=== PATIENT | female | born 1950 | race Caucasian/White ===

== ENCOUNTER 2019-12-06 | Inpatient (IN) | payer MEDICARE ==
[2019-12-05] VITALS (8 sets, daily range): BP systolic 127–140; BP diastolic 56–80
--- NOTE | 2019-12-05 05:26 | NUR ---
IV ANTIEMETIC AND IV PAION MED GIVEN PER MD ORDER.
[2019-12-05 05:32] LABS: IMMATURE GRANULOCYTES 0.4 % (0.0-5.0); MEAN CORPUSCULAR HGB 27.9 pG CALC (26.0-32.0); MEAN CORPUSCULAR HGB CONC 31.3 g/L CALC (32.0-36.0); NEUT# 10.71 thou/uL (2.00-7.15); RED BLOOD COUNT 5.45 mill/uL (4.20-5.60); RED CELL DISTRI WIDTH 13.2 % (11.5-15.5); URINE BILIRUBIN - DIPSTICK NEGATIVE (NEGATIVE); URINE BLOOD DIPSTICK NEGATIVE (NEGATIVE); URINE COLOR YELLOW; URINE GLUCOSE - DIPSTICK >=1000 mg/dL (NEGATIVE); URINE KETONE NEGATIVE (NEGATIVE); URINE LEUK ESTERASE NEGATIVE (NEGATIVE); URINE PH 5.5 (4.5-8.0); URINE PROTEIN - DIPSTICK NEGATIVE (NEG-TRACE); URINE SPECIFIC GRAVITY 1.015; URINE UROBILINOGEN - DIPSTICK 0.2 E.U./dL (0.2)
[2019-12-05 05:33] LABS: HEMATOCRIT 48.5 % (37.0-47.0); HEMOGLOBIN 15.2 g/dl (12.0-16.0)
[2019-12-05 05:34] LABS: URINE NITRITE - DIPSTICK POSITIVE (Negative)
[2019-12-05 05:35] LABS: URINE BACTERIA MANY hpf; URINE EPITHELIAL CELLS MODERATE EPI/hpf (0-FEW)
--- NOTE | 2019-12-05 05:43 | NUR ---
PT. STATES HER ABD. PAIN IS NOW DECREASED TO A 2 ON A SCALE OF 1-10.
[2019-12-05 05:50] LABS: ALBUMIN 4.9 g/dL (3.2-5.0); ALKALINE PHOSPHATASE 89 u/l (38-126); AMYLASE 57 u/l (30-110); BUN 22 mg/dL (8-23); BUN/CREATININE RATIO 30 (12-20 (CALC)); CHLORIDE 100 mmol/l (95-108); CREATININE 0.7 mg/dL (0.5-1.0); GFR > 60 ML/MIN (>=60 (CALC)); GFR FOR AFR.AMER. > 60 ML/MIN (>=60 (CALC)); LIPASE 48 u/l (23-300); POTASSIUM 4.5 mmol/l (3.5-5.1); SGOT/AST 31 u/l (9-36); SODIUM 137 mmol/l (137-146); TOTAL PROTEIN 8.1 g/dL (6.3-8.2)
[2019-12-05 05:51] LABS: ANION GAP 19 (6-22 (CALC)); BILIRUBIN, TOTAL 0.6 mg/dL (0.0-1.4); CARBON DIOXIDE 23 mmol/l (22-30)
--- NOTE | 2019-12-05 06:29 | NUR ---
IV ABT. AND IVF STARTED PER MD ORDERS.
--- NOTE | 2019-12-05 07:01 | NUR ---
REPORT TO NONA VIZCARRA.
--- NOTE | 2019-12-05 07:10 | NUR ---
PT C/O ADOMINAL PAIN THOUGH STATES IT IS BETTER THAN PREVIOUSLY STATED. PLAN OF CARE UPDATED WITH PT INCLUDING PENDING SURGERY.
--- NOTE | 2019-12-05 08:20 | NUR ---
DR. RODRIGUEZ SPOKEN WITH ABOUT PATIENT'S NG TUBE ORDER. PT SYMPTOM FREE AT THIS TIME. PER DR. ELIZALDE THE NG TUBE MAY BE HELD AT THIS TIME BUT PLACED IF SYMPTOMS PERSIST. PATIENT AWARE OF THIS PLAN OF CARE
--- NOTE | 2019-12-05 08:33 | NUR ---
Admission Note Report Given to: Transported by: Wheelchair X Stretcher Transported with: X Nurse Transporter X Patent IV O2 Welfare Investigator Location: ICU X MS2
--- NOTE | 2019-12-05 10:30 | NUR ---
PT HAD COME FROM ER VIA WHEELCHAIR . HAD MEDICATED PT WITH MORPHINE FOR PAIN IN ABD. IVF INFUSING WELL. PT NPO. NG TUBE PLACE AND PT TOLERATED WELL. CLEAR/BROWN FLUID COMING FROM NG TUBE. FAMILY IN ROOM. SAFETY PRECAUTIONS REINFORCED AND CALL LIGHT IN REACH.
--- NOTE | 2019-12-05 11:21 | NUR ---
PT WENT TO OR VIA BED BY
--- NOTE | 2019-12-05 16:30 | NUR ---
PT CAME FROM OR VIA BED. ASSESSMENT DONE. PT STATED SOME PAIN IN ABD BUT REFUSED PAIN MEDICATION AT THIS TIME. X2 DRESSING IN ABD CDI. JENI IN PLACE. SCD IN PLACE.IVF INFUSING WELL. O2 AT 3L VIA NC. PT DENIES NEEDS AT THIS TIME. CALL LIGHT IN REACH. FAMILY IN ROOM.
--- NOTE | 2019-12-05 20:50 | NUR ---
PT. A/O X3. ABLE TO EXPRESS NEEDS. NO ACUTE DISTRESS NOTED. C/O ABDOMINAL PAIN. PAIN LEVEL 05/07. MEDICATED PT. PER md ORDER. WILL CONTINUE TO MONITOR PAIN LEVEL FOR EFFECTIVENESS. PT. AWAKE IN BED WITH CALL LIGHT WITHIN REACH
[2019-12-06] VITALS: BP 130/78
[~2019-12-06] MED LIST: AMOXICILLIN875 MG PO; BL ASPIRIN325 MG PO; FLONASE NASAL50 MCG; HYDROCHLOROT12.5 MG PO; KENALOG-4040 MG/ML IM; LEVOTHYROXIN50 MCG PO; LIPITOR10 MG PO; LIPITOR20 MG PO; LIPITOR40 M1 PO; LIPITOR40 MG PO; LISINOPRIL10 MG PO; LISINOPRIL5 MG PO; MELOXICAM15 MG PO; METFORMIN500 M2 PO; OMEPRAZOLE DR40 MG PO; PREDNISONE10 MG PO; TRIAMCINOLON0.11 EX; TRIAMCINOLON0.5 % EX; [UNRECOGNIZED DRUG - CODE] PO
--- NOTE | 2019-12-06 00:30 | NUR ---
PT. RESING IN BED WITH EYES CLOSED. NO ACUTE DISTRESS NOTED. CALL LIGHT WITHIN REACH BED IN LOWEST POSITION.
[2019-12-06 03:22] VITALS: BP 126/59
--- NOTE | 2019-12-06 04:25 | NUR ---
PT. RESTING IN BED. A.M. MEDICATIONS GIVEN PER MD ORDER. TOLERATED WELL. IV SITE FLUSHED/PATENT. CALL LIGHT WITHIN REACH.
[2019-12-06 07:28] LABS: ANION GAP 12 (6-22 (CALC)); BILIRUBIN, TOTAL 0.5 mg/dL (0.0-1.4); BUN 19 mg/dL (8-23); BUN/CREATININE RATIO 24 (12-20 (CALC)); CARBON DIOXIDE 22 mmol/l (22-30); CHLORIDE 112 mmol/l (95-108); CREATININE 0.8 mg/dL (0.5-1.0); GFR > 60 ML/MIN (>=60 (CALC)); GFR FOR AFR.AMER. > 60 ML/MIN (>=60 (CALC)); POTASSIUM 4.2 mmol/l (3.5-5.1); SGOT/AST 24 u/l (9-36); SODIUM 141 mmol/l (137-146)
[2019-12-06 07:29] LABS: ALBUMIN 2.9 g/dL (3.2-5.0); ALKALINE PHOSPHATASE 44 u/l (38-126); TOTAL PROTEIN 5.4 g/dL (6.3-8.2)
[2019-12-06 07:33] LABS: IMMATURE GRANULOCYTES 0.9 % (0.0-5.0); MEAN CELL VOLUME 91.7 fL CALC (80.0-100.0); MEAN CORPUSCULAR HGB 27.9 pG CALC (26.0-32.0); MEAN CORPUSCULAR HGB CONC 30.4 g/L CALC (32.0-36.0); RED BLOOD COUNT 4.59 mill/uL (4.20-5.60); RED CELL DISTRI WIDTH 14.1 % (11.5-15.5)
[2019-12-06 07:56] LABS: HEMATOCRIT 42.1 % (37.0-47.0); HEMOGLOBIN 12.8 g/dl (12.0-16.0); MANUAL DIFFERENTIAL YES; PLATELET COUNT 208 thou/uL (130-400)
[2019-12-06 07:57] LABS: BAND 34 % (0-8)
--- NOTE | 2019-12-06 11:03 | NUR ---
PT IN BED WITH VISTOR AT BEDSIDE. A/O X 3. DRESSING IN CLEAN DRY AND INTACT. ON CONTINUOUS OXYGEN THERAPY AT 3L NASAL CANULA. INDWELLING STEARNS IS PATENT. CONTINOUS IV THERAPY NO PAIN NOTED AT SIGHT OF IV. MEDICATED WITH PRN PAIN MEDICATION FOR INCISIONAL PAIN. IN BED WITH BED IN LOWEST POSITION. CALL COHN WITH IN REACH. NO S/S OF DISTRESS.
[2019-12-06 11:24] VITALS: BP 98/60
--- NOTE | 2019-12-06 14:18 | NUR ---
Pt in bed watching tv. alert and oriented x 3 able to make needs known. No c/o pain. no sob noted. no s/s distress. Continues on ABT therpy with no s/s of adverse reactions noted. call odonnell with in reach. bed in lowest position.
[2019-12-06 15:16] VITALS: BP 122/56
--- NOTE | 2019-12-06 18:49 | NUR ---
ATTEMPTED TO START A NEW IV. UNSUCCESSFUL. ONCOMING NURSE NOTIFIED.
[2019-12-06 20:45] VITALS: BP 98/55
[2019-12-07 04:39] VITALS: BP 95/55
[2019-12-07 05:40] LABS: HEMATOCRIT 38.3 % (37.0-47.0); HEMOGLOBIN 11.2 g/dl (12.0-16.0); MEAN CELL VOLUME 93.9 fL CALC (80.0-100.0); MEAN CORPUSCULAR HGB 27.5 pG CALC (26.0-32.0); MEAN CORPUSCULAR HGB CONC 29.2 g/L CALC (32.0-36.0); RED BLOOD COUNT 4.08 mill/uL (4.20-5.60); RED CELL DISTRI WIDTH 14.1 % (11.5-15.5)
[2019-12-07 05:59] LABS: ANION GAP 10 (6-22 (CALC)); BUN 26 mg/dL (8-23); BUN/CREATININE RATIO 38 (12-20 (CALC)); CARBON DIOXIDE 20 mmol/l (22-30); CHLORIDE 113 mmol/l (95-108); CREATININE 0.7 mg/dL (0.5-1.0); GFR > 60 ML/MIN (>=60 (CALC)); GFR FOR AFR.AMER. > 60 ML/MIN (>=60 (CALC)); POTASSIUM 4.3 mmol/l (3.5-5.1); SODIUM 139 mmol/l (137-146)
[2019-12-07 08:20] VITALS: BP 108/73
--- NOTE | 2019-12-07 11:00 | NUR ---
PATIENT A/OX4, NO S/S RESP DISTRESS, PATIENT C\O ABD PAIN, TREATED PATIENT PAIN PER MD ORDERS, DR. RODRIGUEZ ORDER NG REMOVAL, PATIENT NG TUBE WAS REMOVED FROM LEFT NARE PER MD ORDERS PATIENT TOLERATED NG TUBE REMOVAL, WILL CONTINUE TO MONITOR PATIENT HOURLY ROUNDING ALL LIGHT WITHIN REACH
[2019-12-07 15:48] VITALS: BP 115/73
--- NOTE | 2019-12-07 17:50 | NUR ---
PATIENT A\OX4, NO S/S RESP DISTRESS, PATIENT ON O2 VIA NC , PATIENT C/O PAIN ' TREATED PATIENT ABD PAIN PER MD ORDERS, WILL CONTINUE TO MONITOR PATIENT HOURLY ROUNDING, CALL LIGHT WITH REACH
[2019-12-07 18:42] VITALS: BP 110/56
--- NOTE | 2019-12-07 20:00 | NUR ---
Patient is A&Ox3 and able to make needs known. Patient denied pain. patient lying in the bed with eyes open watching IV. Head to Toe assessment completed. No s/s of distress nor discomfort IV site no issues with ordered fluids running. Lungs sounds clear, postive for bowel sounds. ABD incision intact and dressing is clean and dry. Patient has a cisneros and is draining yellow urine. Patient is NPO and plan is to advance diet as tolerated. Patient had HG tube d/c and no issues noted.
[2019-12-08 03:50] VITALS: BP 130/77
--- NOTE | 2019-12-08 04:00 | NUR ---
Patient in bed resting with eyes closes, No c/o of pain. No s/s of resp distress.
[2019-12-08 05:37] LABS: HEMATOCRIT 36.6 % (37.0-47.0); HEMOGLOBIN 10.9 g/dl (12.0-16.0); MEAN CELL VOLUME 93.6 fL CALC (80.0-100.0); MEAN CORPUSCULAR HGB 27.9 pG CALC (26.0-32.0); MEAN CORPUSCULAR HGB CONC 29.8 g/L CALC (32.0-36.0); RED BLOOD COUNT 3.91 mill/uL (4.20-5.60); RED CELL DISTRI WIDTH 13.8 % (11.5-15.5)
[2019-12-08 05:48] LABS: ANION GAP 10 (6-22 (CALC)); BUN 18 mg/dL (8-23); BUN/CREATININE RATIO 30 (12-20 (CALC)); CARBON DIOXIDE 20 mmol/l (22-30); CHLORIDE 113 mmol/l (95-108); CREATININE 0.6 mg/dL (0.5-1.0); GFR > 60 ML/MIN (>=60 (CALC)); GFR FOR AFR.AMER. > 60 ML/MIN (>=60 (CALC)); POTASSIUM 4.4 mmol/l (3.5-5.1); SODIUM 140 mmol/l (137-146)
--- NOTE | 2019-12-08 07:50 | NUR ---
PT SITTING IN BED. A&O X2. O2 NC @ 2L/MIN. NO DISTRESS NOTED. PER PT SHE DOES NOT USE O2 @ HOME. EXPLAINED TO THE PT THAT I WOULD REMOVE THE O2 AND SEE HOW SHE DOES WITHOUT IT. O2 SATURATION 98% WHEN O2 REMOVED O2 SATURATION WAS 97%. NO DISTRESS NOTED AFTER REMOVAL. O2 LEFT AT BEDSIDE IF PT BECOMES SOB. IS @ BEDSIDE, PT DEMONSTRATED PROPER USE OF DEVICE. GOAL SET AT 750. ABD DRESSINGS IN PALCE, DRESSINGS CDI. NO SHADOWING PRESENT. JENI DRAIN IN PLACE WITH SEROSANGUINOS FLUID. STEARNS CATH DRAINING VIA GRAVITY WITH CLEAR YELLOW URINE NOTED. ASSESSMENT COMPLETED. DISCUSSED POC. CALL LIGHT IN REACH CONTINUE TO MONITOR.
[2019-12-08 08:50] VITALS: BP 135/85
--- NOTE | 2019-12-08 11:15 | NUR ---
PT AMBULATING HALLWAY WITH THE ASSISTANCE OF A WALKER. PT TOLERATED WELL. ASSISTED PT BACK INTO RECLINER.
[2019-12-08 11:18] VITALS: BP 144/77
--- NOTE | 2019-12-08 12:20 | NUR ---
STEARNS CATHETER REMOVED , PT TOLERATED WELL.
[2019-12-08 15:47] VITALS: BP 137/74
--- NOTE | 2019-12-08 18:08 | NUR ---
PT C/O PAIN IN ABD. IV DILAUDID GIVEN. PT TOLERATED WELL. CONTINUE TO MONITOR
[2019-12-08 18:52] VITALS: BP 118/71
--- NOTE | 2019-12-08 20:47 | NUR ---
PT RESTING IN BED. RESPIRATIONS EVEN AND UNLABORED ON RA. LUNGS SOUND CLEAR/DIMINISHED. PEDAL PULSES STRONG. DRESSING TO ABD CDI. PT DENIES ANY PAIN OR DISCOMFORT AT THIS TIME. SAFETY PRECAUTIONS IN PLACE. WILL CONTINUE TO MONITOR.
--- NOTE | 2019-12-09 00:12 | NUR ---
PT RESTING IN BED WATCHING TV. RESPIRATIONS EVEN AND UNLABORED ON RA. NO S/S OF DISTRESS AT THIS TIME. WILL CONTINUE TO MONITOR.
--- NOTE | 2019-12-09 04:00 | NUR ---
PT RESTING IN BED. NO S/S OF DISTRESS
[2019-12-09 04:10] VITALS: BP 111/65
[2019-12-09 05:37] LABS: HEMATOCRIT 37.3 % (37.0-47.0); IMMATURE GRANULOCYTES 0.4 % (0.0-5.0); MEAN CELL VOLUME 93.7 fL CALC (80.0-100.0); MEAN CORPUSCULAR HGB 27.6 pG CALC (26.0-32.0); MEAN CORPUSCULAR HGB CONC 29.5 g/L CALC (32.0-36.0); NEUT# 5.05 thou/uL (2.00-7.15); RED BLOOD COUNT 3.98 mill/uL (4.20-5.60); RED CELL DISTRI WIDTH 13.7 % (11.5-15.5)
[2019-12-09 05:46] LABS: ANION GAP 11 (6-22 (CALC)); BUN 13 mg/dL (8-23); BUN/CREATININE RATIO 26 (12-20 (CALC)); CARBON DIOXIDE 20 mmol/l (22-30); CHLORIDE 111 mmol/l (95-108); CREATININE 0.5 mg/dL (0.5-1.0); GFR > 60 ML/MIN (>=60 (CALC)); GFR FOR AFR.AMER. > 60 ML/MIN (>=60 (CALC)); MAGNESIUM 1.9 mg/dL (1.6-2.3); POTASSIUM 4.4 mmol/l (3.5-5.1); SODIUM 138 mmol/l (137-146)
[2019-12-09 07:14] VITALS: BP 137/84
--- NOTE | 2019-12-09 07:14 | NUR ---
PT SITTING IN BED. A&O X3. NO COMPLAINTS OF PAIN AT THIS TIME. IS AT BEDSIDE, PT DEMONSTRATES PROPER USE OF DEVICE. GOAL TODAY SET AT 1,000. JENI IN PLACE DRAINING SEROSANGUINEOUS FLUID. PT TOLERATING FULL LIQUID DIET WELL. STATES SHE HAS BEEN PASSING SOME GAS BUT NO BM YET. EXPLAINED TO THE PT THAT WE WOULD AMBULATE IN THE HALLWAY TODAY. PT VERBALIZED UNDERSTANDING. DISCUSSED POC. CALL LIGHT IN REACH. ASSESSMENT COMPLETED. CONTINUE TO MONITOR.
--- NOTE | 2019-12-09 08:09 | NUR ---
PT SITTING IN RECLINER. NO DISTRESS NOTED. CALL LIGHT IN REACH CONTINUE TO MONITOR.
--- NOTE | 2019-12-09 13:35 | NUR ---
DR. COLIN AT BEDSIDE. DISCUSSED POC.
[2019-12-09 14:45] VITALS: BP 144/70
--- NOTE | 2019-12-09 15:15 | NUR ---
PT SITTING IN BED WITH AT BEDSIDE. NO DISTRESS NOTED. CALL LIGHT IN REACH. CONTINUE TO MONITOR.
--- NOTE | 2019-12-09 15:39 | NUR ---
PT AMBULATING HALLWAY WITH ORACLE WMS CONSULTANT AT SIDE PT TOLERATING WELL
[2019-12-09 19:00] VITALS: BP 126/77
--- NOTE | 2019-12-09 19:12 | NUR ---
REPORT RECEIVED FROM MEKHI NAIK. PT RESTING IN BED. NO S/S OF DISTRESS AT THIS TIME. SAFETY PRECAUTIONS IN PLACE. WILL CONTINUE TO MONITOR.
--- NOTE | 2019-12-09 20:05 | NUR ---
PT RESTING IN BED ALERT AND ORIENTED. RESPIRATIONS EVEN AND UNLABORED ON RA, LUNGS SOUND CLEAR DIMINISHED. PEDAL PULSES STRONG. PT DENIES ANY PAIN OR DISCOMFORT AT THIS TIME. PT ASSISTED TO THE RESTROOM AND BACK TO BED. DRESSING CDI. SAFETY PRECAUTIONS IN PLACE. WILL CONTINUE TO MONITOR.
--- NOTE | 2019-12-10 00:24 | NUR ---
PT ASSISTED TO THE RESTROOM AND BACK TO BED. SAFETY ORECAUTIONS IN PLACE
[2019-12-10 04:15] VITALS: BP 121/82
--- NOTE | 2019-12-10 04:44 | NUR ---
PT RESTING IN BED. NO S/S OF DISTRESS AT THIS TIME. SAFETY PRECAUTIONS IN PLACE. WILL CONTINUE TO MONITOR.
[2019-12-10 04:52] LABS: HEMATOCRIT 38.1 % (37.0-47.0); HEMOGLOBIN 11.4 g/dl (12.0-16.0); MEAN CELL VOLUME 91.4 fL CALC (80.0-100.0); MEAN CORPUSCULAR HGB 27.3 pG CALC (26.0-32.0); MEAN CORPUSCULAR HGB CONC 29.9 g/L CALC (32.0-36.0); RED BLOOD COUNT 4.17 mill/uL (4.20-5.60); RED CELL DISTRI WIDTH 13.6 % (11.5-15.5)
[2019-12-10 05:03] LABS: ANION GAP 9 (6-22 (CALC)); BUN 9 mg/dL (8-23); BUN/CREATININE RATIO 19 (12-20 (CALC)); CARBON DIOXIDE 23 mmol/l (22-30); CHLORIDE 110 mmol/l (95-108); CREATININE 0.5 mg/dL (0.5-1.0); GFR > 60 ML/MIN (>=60 (CALC)); GFR FOR AFR.AMER. > 60 ML/MIN (>=60 (CALC)); MAGNESIUM 1.8 mg/dL (1.6-2.3); POTASSIUM 3.9 mmol/l (3.5-5.1); SODIUM 138 mmol/l (137-146)
--- NOTE | 2019-12-10 08:00 | NUR ---
PT RESTING IN BED. PT DENIES ANY NEEDS AT THIS TIME. DRIVER LICENSE EXAMINER WILL CONTINUE TO MONITOR
[2019-12-10] MEDS ORDERED: PERCOCET 5/325M1 TAB PO (11:36)
[2019-12-10 12:00] VITALS: BP 160/90
--- NOTE | 2019-12-10 12:00 | NUR ---
PT HAS D/C ORDER PENDING. MEDS ADMINISTERED PER ORDER. 300 CC OF INES FLUID DRAIND FROM JENI DRAIN
--- NOTE | 2019-12-10 15:00 | NUR ---
ORDER RECEIVED FROM DR PEÑA TO D/C JENI DRAIN. DIRECTOR [employer] ADVISED BY ZIGGY STEPHENSON TO MONITOR JENI INCISION SITE FOR ONE HOUR AND D/C PATIENT HOME THEREAFTER. PT NOTIFIED
--- NOTE | 2019-12-10 16:10 | NUR ---
PT DISCHARGE. DISCHARGE PAERWORK REVIEWED. PT ABLE TO VERBALIZE DAY OF F/U APPOINTMENT PER D/C ORDER. PT EDUCATED ON CARE OF INCISION SITE. PT NOTIFIED TO CALL PCP/OR RETURN TO ER IF SYMPTHOMS RETURN OR WORSENS
[2020-05-20] MEDS ORDERED: FISH OIL1000 MG PO (13:27)
[2020-05-20] MEDS ORDERED: MULTI VIT PO (13:27)
[2020-05-20] MEDS ORDERED: HAIR SKIN AND N1 TAB PO (13:27)
== END 2019-12-10 16:17 | disposition home or self-care (01) | DRG 330 ==
PROVIDERS: Internal Medicine; Nurse Practitioner Family; ADMIT Internal Medicine
PROC: 0DB80ZZ Excision of Small Intestine, Open Approach (ICD-10-PCS; principal; 2019-12-05)
PROC: 0DN80ZZ Release Small Intestine, Open Approach (ICD-10-PCS; 2019-12-05)
PROC: 0WQF0ZZ Repair Abdominal Wall, Open Approach (ICD-10-PCS; 2019-12-05)
PROC: 0WJG4ZZ Inspection of Peritoneal Cavity, Percutaneous Endoscopic Approach (ICD-10-PCS; 2019-12-05)
DX: K43.0 Incisional hernia with obstruction, without gangrene (principal); N39.0 Urinary tract infection, site not specified; K91.71 Accidental puncture and laceration of a digestive system organ or structure during a digestive system procedure; I10 Essential (primary) hypertension; E11.9 Type 2 diabetes mellitus without complications; E03.9 Hypothyroidism, unspecified; Y83.8 Other surgical procedures as the cause of abnormal reaction of the patient, or of later complication, without mention of misadventure at the time of the procedure; Z79.84 Long term (current) use of oral hypoglycemic drugs
CPT/HCPCS: G0378; J1100; S0164

== ENCOUNTER 2020-05-27 07:28 | Day surgery (SDC) | payer MEDICARE ==
[~2020-05-27] VITALS: Ht 167.6 cm; Wt 79.8 kg
[~2020-05-27 07:28] MED LIST changes: +FISH OIL1000 MG PO; +HAIR SKIN AND N1 TAB PO; +MULTI VIT PO; +PERCOCET 5/325M1 TAB PO
[2020-05-27] MEDS ORDERED: PERCOCET 5/325M1 TAB PO (12:03)
[2020-05-27 12:27] VITALS: BP 132/61
== END 2020-05-27 12:45 | disposition home or self-care (01) ==
LOC: ORM 07:28
PROVIDERS: ATTEND Surgery
PROC: 0WUF4JZ Supplement Abdominal Wall with Synthetic Substitute, Percutaneous Endoscopic Approach (ICD-10-PCS; principal; 2020-05-27)
PROC: 0DNW4ZZ Release Peritoneum, Percutaneous Endoscopic Approach (ICD-10-PCS; 2020-05-27)
DX: K43.2 Incisional hernia without obstruction or gangrene (principal); I10 Essential (primary) hypertension; E11.9 Type 2 diabetes mellitus without complications; E03.9 Hypothyroidism, unspecified; Z11.59 Encounter for screening for other viral diseases
CPT/HCPCS: C1781; J0131; J1100; J2710

== ENCOUNTER 2020-05-27 23:54 | Inpatient (IN) | payer MEDICARE ==
[~2020-05-27] VITALS: Ht 165.1 cm; Wt 86.0 kg
--- NOTE | 2020-05-27 23:57 | NUR ---
PATIENT TO ROOM 6 VIA WHEELCHAIR. UNDRESSED INTO A GOWN. ACCOMPANIED BY SPOUSE. TRIAGE COMPLETED AT BEDSIDE. AWAITING MD LEGER.
[2020-05-28] VITALS (13 sets, daily range): BP systolic 86–125; BP diastolic 46–61
--- NOTE | 2020-05-28 00:14 | NUR ---
PT STATES PAIN IS UNCONTROLLED BY PERCOCET PROVIDED POST OP TODAY, INCISION INTACT WITH DERMABOND IN PLACE, NO S/S OF INFECTION PT DENIES BM OR PASSING FLATTUS SINCE SURGERY STATES SHE HAS HAD A BOWEL BLOCKAGE AFTER SURGERY IN PAST AND THIS IS HOW IT FELT.
--- NOTE | 2020-05-28 00:25 | NUR ---
MEDICATED ORDERED FOR PAIN AND NAUSEA, IVF INFUSING ORDERED. PT AWARE OF PLANNED CT SCAN
[2020-05-28 00:43] LABS: IMMATURE GRANULOCYTES 0.2 % (0.0-5.0); MEAN CELL VOLUME 88.3 fL CALC (80.0-100.0); MEAN CORPUSCULAR HGB 27.4 pG CALC (26.0-32.0); MEAN CORPUSCULAR HGB CONC 31.1 g/dL CAL (32.0-36.0); NEUT# 9.77 thou/uL (2.00-7.15); RED BLOOD COUNT 5.65 mill/uL (4.20-5.60); RED CELL DISTRI WIDTH 14.3 % (11.5-15.5)
[2020-05-28 00:51] LABS: HEMATOCRIT 49.9 % (37.0-47.0); HEMOGLOBIN 15.5 g/dl (12.0-16.0)
--- NOTE | 2020-05-28 01:05 | NUR ---
PT RESTING SPOUSE AT BEDSIDE, PAIN IMPROVED PER PT, ICE CHIPS FOR DRY MOUTH PROVIDED, AWAITING LAB RESULTS TO PERFORM CT PT AWARE AND VERBALIZES UNDERSTANDING.
[2020-05-28 01:08] LABS: AMYLASE 148 u/l (30-110); ANION GAP 18 (6-22 (CALC)); BILIRUBIN, TOTAL 0.7 mg/dL (0.0-1.4); BUN 29 mg/dL (8-23); BUN/CREATININE RATIO 35 (12-20 (CALC)); CARBON DIOXIDE 19 mmol/l (22-30); CHLORIDE 103 mmol/l (95-108); CREATININE 0.8 mg/dL (0.5-1.0); GFR > 60 ML/MIN (>=60 (CALC)); GFR FOR AFR.AMER. > 60 ML/MIN (>=60 (CALC)); LIPASE 812 u/l (23-300); SGOT/AST 28 u/l (9-36); SODIUM 136 mmol/l (137-146)
[2020-05-28 01:11] LABS: ALBUMIN 4.5 g/dL (3.2-5.0); ALKALINE PHOSPHATASE 79 u/l (38-126)
[2020-05-28 01:19] LABS: MYOGLOBIN 93 ng/mL (0 - 62)
--- NOTE | 2020-05-28 02:05 | NUR ---
PT STATES PAIN REMAINS CONTROLLED, AWARE OF AWAITNG CT / RESULTS, CALL BELLL WITHIN REACH
--- NOTE | 2020-05-28 02:59 | NUR ---
AWARE OF PLANNED ADMISSION, CALL COHN WITHIN REACH.
--- NOTE | 2020-05-28 03:40 | NUR ---
PT TRANSFERRED TO MED SURG VIA [facility] WITH TELEMETRY ON, NURSE AT BEDSIDE ON ARRIVAL TO UNIT.
--- NOTE | 2020-05-28 03:40 | NUR ---
PT. ARRIVED TO THE FLOOR AND SETTLED IN ROOM.CALL LIGHT IS IN REACH.
--- NOTE | 2020-05-28 04:25 | NUR ---
ADMISSION ASSESSMENT COMPLETED. PT. C/O ABD PAIN AND NAUSEA AND MEDICATED WITH ORDERED DILAUDID AND ZOFRAN; WILL REASSESS. ADMISSION ASSESSMENT COMPLETED. PT. ORIENTED TO CALL LIGHT, ROOM, AND POC; VERBALIZES UNDERSTANDING. IV SITES PATENT X2. X8 SURGICAL PUNCTURES NOTED TO ABDOMEN WITH DERMABOND IN PLACE. SCD'S APPLIED TO BLE. VSS. MOUTHSWABS PROVIDED. ENCOURAGED TO CALL FOR ANY NEEDS. CALL LIGHT IS IN REACH.
--- NOTE | 2020-05-28 07:20 | NUR ---
REPORT RECEIVED FROM COLETTERN;PT RESTING IN SEMI FOWLERS POSITION;INTRODUCED SELF TO PT AND POC DISCUSSED;RESPIRATIONS EVEN AND UNLABORED ON RA;PT DENIES ANY CURRENT NEEDS;IV FLUIDS INFUSING WITH EASE;TELE MONITORING IN PLACE;PT ENCOURAGED TO CALL FOR ASSISTANCE IF NEEDED;CALL LIGHT IN REACH;WILL CONTINUE TO MONITOR
[2020-05-28 08:54] LABS: HEMATOCRIT 45.6 % (37.0-47.0); HEMOGLOBIN 13.8 g/dl (12.0-16.0); IMMATURE GRANULOCYTES 0.3 % (0.0-5.0); MEAN CELL VOLUME 88.9 fL CALC (80.0-100.0); MEAN CORPUSCULAR HGB 26.9 pG CALC (26.0-32.0); MEAN CORPUSCULAR HGB CONC 30.3 g/dL CAL (32.0-36.0); NEUT# 5.62 thou/uL (2.00-7.15); RED BLOOD COUNT 5.13 mill/uL (4.20-5.60); RED CELL DISTRI WIDTH 14.3 % (11.5-15.5)
--- NOTE | 2020-05-28 09:35 | NUR ---
PT RESTING IN SUPINE POSITION,A&O X3;VS OBTAINED AND ASSESSMENT COMPLETED, CURRENT BP 97/58 MANUALLY HR 110;PT REPORTS INCREASED ABDOMINAL PAIN RATING 10/10 ON THE PAIN SCALE AND REQUESTS PAIN MEDICATION, TO BE NOTIFIED OF LOW BLOOD PRESSURE AND REQUEST FOR PAIN MEDICATION. DILAUDID ONLY ORDERED AT THIS TIME;RESPIRATIONS EVEN AND UNLABORED ON RA,CLEAR LUNG SOUNDS;I.S. PROVIDED AND PT INSTRUCTED IN USE 10X PER HOUR;ABDOMEN DISTENDED/SOFT ON PALPATION AND HYPOACTIVE IN ALL 4 QUADRANTS;PT POST OP LAP ABDOMINAL HERNIA REPAIR 05/27/20, X8 INCISIONAL AREAS NOTED TO ABDOMEN WITH DERMABOND INTACT;STRONG PEDAL PULSES;#20G TO RAC FLUSHED AND PATENT,#22G TO RW INFUSING NS @ 125ML/HR,SITES APPEAR HEALTHY;TELE MONITORING IN PLACE;PT DENIES ANY ADDITIONAL NEEDS AT THIS TIME AND IS ENCOURAGED TO CALL FOR ASSISTANCE IF NEEDED;CALL LIGHT IN REACH;WILL CONTINUE TO MONITOR
--- NOTE | 2020-05-28 10:40 | NUR ---
PT MEDICATED WITH TORADOL 15MG IVP AND 1 FLUID BOLUS AT THIS TIME PER ORDER;PT CONTINUES TO REPORT ABDOMINAL PAIN 09/06.PT NOTIFIED OF ORDER TO OBTAIN CONSENT FOR SX AND VERBALIZES UNDERSTANDING;WILL CONTINUE TO MONITOR
--- NOTE | 2020-05-28 10:45 | NUR ---
SPOKE WITH JIM IN OR AND NOTIFIED OF CONSENT FOR SX.
--- NOTE | 2020-05-28 10:50 | NUR ---
CONSENT OBTAINED FOR EXPLORATORY LAPRAROSCOPY POSSIBLE LAPARTOMY.PT EDUCATED ON ALL RISKS AND BENFITS AND VERBALIZES UNDERSTANDING.
--- NOTE | 2020-05-28 11:39 | NUR ---
PT TRANSPORTED TO OR IN STABLE CONDITION VIA HOSPITAL BED ACCOMPANIED BY X2 OR NURSES.
[2020-05-28 13:12] LABS: BILIRUBIN, TOTAL 0.6 mg/dL (0.0-1.4)
[2020-05-28 13:13] LABS: TOTAL PROTEIN 5.5 g/dL (6.3-8.2)
--- NOTE | 2020-05-28 17:13 | NUR ---
CALLED [facility] SPOKE TO CLARA WAS GIVEN CONFIRMATION NUMBER [phone]
--- NOTE | 2020-05-28 20:02 | NUR ---
LASER SPECIALIST CALL HERE PER RADIOLOGIST TWO NEW ORDERS FOR CXR, ORDERS HAVE BEEN PLACED.
--- NOTE | 2020-05-28 20:28 | NUR ---
[id number]: PT LAYS WITH HOB ABOUT 3O DEGREES. PT IS DROWSY, AWAKENS EASILY WHEN SPOKEN TO, WHEN ASKED HOW SHE FEELS SHE STATES, "WORN OUT." PT DENIES PAIN AT THIS TIME. ICE CHIPS PROVIDED PER ORDER, PT ABLE TO PLACE INTO HER MOUTH WITH GUIDANCE. R NARE NG TUBE PLACED ON LIS, DRAINS YELLOW/BROWN BILE. ABD BIMDER INTACT, HAS TWO DRAINS ON UPPER ABDOMEN COMING ABOVE ABOVE ABD BINDER AND TWO DRAINS ON LOWER ABD COMIND DOWN FROM ABD BINDER. PT ALSO HAS A WOUND VAC AT 125 MMHG CONTINUOUS. BLOOD SUGAR CHECKED. RIJ TRIPLE LUMEN INTACT, FLUSHE AND RETURNS BLOOD PROPERLY. NS AT 150 ML/HR. STEARNS CATH INTACT, DRAINS TO GRAVITY, 125 ML DRAINED OUT, DARK INES CLOUDY URINE NOTED. DRAINED 70 ML OUT OF DRAINS, DRAINAGE IS BLOODY AND WITH SMALL CLOTS. SCD'S PLACED. SATS 90%-93% ON 2 L/MIN NC, NO SOB NOTED. NURSING ASSESSMENT PERFORMED. PT ORIENTED X4. CALL LIGHT WITHIN REACH.
--- NOTE | 2020-05-28 22:04 | NUR ---
PT'S HAD CALLED EARLIER AND PT DID NOT WISH TO SPEAK AT THE MOMENT, PT WANTS TO TALK TO HIM NOW, I HAVE CALLED AND TAKEN PT PHONE TO PT, SHE IS NOW SPEAKING TO HIM.
--- NOTE | 2020-05-28 22:57 | NUR ---
PT C/O SORE THROAT, PROVIDED WITH LOZENGE, ALSO REPORTS PAIN AT 6 ON ABDOME, DILAUDID IV PROVIDED. ABD BINDER WAS ALSO RELEASED SOME, PT COMPLAINED OF IT "CUTTING INTO MY THIGH AND TOO TOGHT I CAN'T BREATHE." PT OFFFERS NO OTHER COMPLAINTS, CALL LIGHT WITHIN REACH.
[2020-05-29] VITALS (20 sets, daily range): BP systolic 60–155; BP diastolic 33–83
--- NOTE | 2020-05-29 00:40 | NUR ---
PT WAS TRUNED TO HE RLEFT SIDE WITH MAX ASSIST X2, C/O OF PAIN, DILAUDID PROVIDED ALSO PROVIDED ANOTHER LOZENGER. NO OTHER COMPLAINTS OR NEEDS AT THIS TIME.CALL LIGHT WITHIN REACH.
--- NOTE | 2020-05-29 05:15 | NUR ---
PT IS AFEBRILE, REQUESTS ICE CHIPS, PROVIDED. OFFERS NO COMPLAINTS OR NEEDS AT THIS TME. CALL LIGHT WITHIN REACH.
[2020-05-29 05:37] LABS: HEMATOCRIT 42.2 % (37.0-47.0); HEMOGLOBIN 12.7 g/dl (12.0-16.0); MEAN CELL VOLUME 90.4 fL CALC (80.0-100.0); MEAN CORPUSCULAR HGB 27.2 pG CALC (26.0-32.0); MEAN CORPUSCULAR HGB CONC 30.1 g/dL CAL (32.0-36.0); RED BLOOD COUNT 4.67 mill/uL (4.20-5.60); RED CELL DISTRI WIDTH 15.1 % (11.5-15.5)
[2020-05-29 06:12] LABS: ALBUMIN 2.5 g/dL (3.2-5.0); ALKALINE PHOSPHATASE 36 u/l (38-126); BILIRUBIN, TOTAL 0.6 mg/dL (0.0-1.4); BUN 38 mg/dL (8-23); BUN/CREATININE RATIO 41 (12-20 (CALC)); CREATININE 0.9 mg/dL (0.5-1.0); GFR > 60 ML/MIN (>=60 (CALC)); GFR FOR AFR.AMER. > 60 ML/MIN (>=60 (CALC)); POTASSIUM 4.2 mmol/l (3.5-5.1); SODIUM 139 mmol/l (137-146); TOTAL PROTEIN 4.8 g/dL (6.3-8.2)
[2020-05-29 06:14] LABS: ANION GAP 11 (6-22 (CALC)); CARBON DIOXIDE 15 mmol/l (22-30); CHLORIDE 117 mmol/l (95-108); SGOT/AST 57 u/l (9-36)
--- NOTE | 2020-05-29 06:16 | NUR ---
pain medication and lozenger provided per pt request. pt did speak on the phone this am with her . also provided the incentive spirometer and eduacted on how and when to use it, pt agrees to use it when pain is less.
--- NOTE | 2020-05-29 08:30 | NUR ---
DR PEÑA AT BEDSIDE
--- NOTE | 2020-05-29 10:40 | NUR ---
DR RODRIGUEZ AT BEDSIDE.
--- NOTE | 2020-05-29 12:00 | NUR ---
PT RESTING IN BED, REPOSITIONED WITH ASSIST. ALERT AND ORIENTEDX4. MOVES ALL EXREMITIES. DENIES PAIN OR DISCOMFORT AT THIS TIME. CALL LIGHT WITHIN REACH, WILL CONTINUE TO MONITOR.
--- NOTE | 2020-05-29 14:40 | NUR ---
PT SOB, SATS IN THE 80'S, OXYGEN VIA NC INCREASED TO 6LT. STAT XRAY ORDERED. DR PEÑA NOTIFIED
--- NOTE | 2020-05-29 14:54 | NUR ---
RT AT BEDSIDE, NON-REBREATHER PLACED ON PT. OXYGEN SATS NOW 98%.
--- NOTE | 2020-05-29 15:20 | NUR ---
PT RESTING IN BED, 1MG DILAUDID FOR ABD PAIN.
--- NOTE | 2020-05-29 15:40 | NUR ---
PT CALLED IN TO SPEAK TO , PORTABLE TAKEN TO PT.
--- NOTE | 2020-05-29 18:40 | NUR ---
PT MOVED TO BED 4.
--- NOTE | 2020-05-29 21:00 | NUR ---
pt lays with hob 30 degrees. on high flow, weaned down. pt did attempt to pull her nrb off. wound vac intact with abd binder on. alpa drains x4 intcat. rij triple lumen inatct, meds infusing properly. scd's intact. cisneros cath intact. afebrile. st on telemetry, hr low 100's. call light within reach.
[2020-05-30] VITALS (7 sets, daily range): BP systolic 86–186; BP diastolic 42–88
--- NOTE | 2020-05-30 00:24 | NUR ---
pt reuests milk begins to pull nrb mask off, explained she can have ice chips, ice chips provided and given to her with a spoon.
--- NOTE | 2020-05-30 02:39 | NUR ---
pt in no acute distress. alpa drains emptied prn. o2 weaned to 5 l/min on nrb mask, sats 97%.
--- NOTE | 2020-05-30 04:38 | NUR ---
pt washed up, linens changed. pt moans in pain, would like pain mediactio. ice chips provided. sats 95%.
--- NOTE | 2020-05-30 05:05 | NUR ---
blood drawn from [facility] for labs ordered this am.
[2020-05-30 06:14] LABS: MAGNESIUM 1.8 mg/dL (1.6-2.3)
[2020-05-30 06:15] LABS: ANION GAP 7 (6-22 (CALC)); BUN 37 mg/dL (8-23); BUN/CREATININE RATIO 50 (12-20 (CALC)); CHLORIDE 122 mmol/l (95-108); CREATININE 0.7 mg/dL (0.5-1.0); GFR > 60 ML/MIN (>=60 (CALC)); GFR FOR AFR.AMER. > 60 ML/MIN (>=60 (CALC)); POTASSIUM 3.8 mmol/l (3.5-5.1); SODIUM 144 mmol/l (137-146)
[2020-05-30 06:18] LABS: CARBON DIOXIDE 19 mmol/l (22-30)
--- NOTE | 2020-05-30 07:00 | NUR ---
pt resting in bed, assessed. pt has shallow breathing in the 30's, crackles on the left. Afebrile, temp of 97.4 temporal and oral. pt skin is flushed. see process interventions for full assessment
--- NOTE | 2020-05-30 08:00 | NUR ---
DR PEÑA AT BEDSIDE, NO NEW ORDERS AT THIS TIME.
--- NOTE | 2020-05-30 10:00 | NUR ---
PT RESTING IN BED, DENIES PAIN OR DISCOMFORT AT THIS TIME, CALL LIGHT WITHIN REACH, WILL CONTINUE TO MONITOR.
--- NOTE | 2020-05-30 11:48 | NUR ---
PT ASSESSED, RESTING IN BED, 1MG DILAUDID FOR ABDOMINAL PAIN GIVEN. LEFT LOWER JENI DRAIN- 60ML BILE OUT. NG TUBE TO LIS DARK GREEN DRAINAGE. TPN INFUSING AT 85ML/HR. AFEBRILE, FLAT AFFECT. ST 106, WILL CONTINUE TO MONITOR.
--- NOTE | 2020-05-30 12:00 | NUR ---
DR RODRIGUEZ AT BEDSIDE. PT ASSESSED, PT WILL HAVE TO GO BACK TO OR, DR RODRIGUEZ WILL NOTIFY FAMILY OF PROCEDURE.
--- NOTE | 2020-05-30 12:20 | NUR ---
DR RODRIGUEZ CALLED TO GIVE ME NURSING VP INTEGRATION AT [facility] PHONE NUMBER FOR PT TRANSFER.
--- NOTE | 2020-05-30 12:29 | NUR ---
SPOKE TO ALVAREZ AT [facility], PT FACESHEET FAXED OVER ICU BED 240 ASSIGNED.
--- NOTE | 2020-05-30 12:40 | NUR ---
SPOKE TO DAUGHTER JAYDE, UPDATED HER ON PENDING TRANSFER.
--- NOTE | 2020-05-30 12:50 | NUR ---
[facility] CALLED FOR PT TRANSFER TO [facility].
--- NOTE | 2020-05-30 13:00 | NUR ---
REPORT CALLED TO NONA ICU AT [facility].
--- NOTE | 2020-05-30 13:30 | NUR ---
[facility] HERE FOR TRANSPORT
--- NOTE | 2020-05-30 13:50 | NUR ---
VINEET ON THE PHONE, LET PT KNOW HE CALLED TO CHECK ON HER.
--- NOTE | 2020-05-30 13:54 | NUR ---
PT TRANSFERED TO [facility]IA [facility], PT LEFT IN STABLE CONDITION. ALL BELONGINGS PACKED AND SENT WITH PATIENT. DR RODRIGUEZ MADE AWARE THAT PT ON THE WAY OVER.
--- NOTE | 2020-06-01 17:38 | NUR ---
CALLED AND GOT THE WOUND VAC FOR RETURN. SPOKE TO LAMBERTO AND WAS GIVEN CONFIRMATION NUMBER [phone].
== END 2020-05-30 13:54 | DRG 907 ==
LOC: ED 23:54 → ED-I 05-28 02:31 → ED 05-28 02:52 → MS2 05-28 02:53 → ED-I 05-28 02:53 → MS2 05-28 02:59 → ICU 05-28 18:37
PROVIDERS: Emergency Medicine; Internal Medicine; ADMIT Surgery; ATTEND Surgery
PROC: 0DB80ZZ Excision of Small Intestine, Open Approach (ICD-10-PCS; principal; 2020-05-28)
PROC: 0DQA0ZZ Repair Jejunum, Open Approach (ICD-10-PCS; 2020-05-28)
PROC: 0WQF0ZZ Repair Abdominal Wall, Open Approach (ICD-10-PCS; 2020-05-28)
PROC: 0WPF0JZ Removal of Synthetic Substitute from Abdominal Wall, Open Approach (ICD-10-PCS; 2020-05-28)
PROC: 0WJF4ZZ Inspection of Abdominal Wall, Percutaneous Endoscopic Approach (ICD-10-PCS; 2020-05-28)
PROC: 0DNW0ZZ Release Peritoneum, Open Approach (ICD-10-PCS; 2020-05-28)
PROC: 02HV33Z Insertion of Infusion Device into Superior Vena Cava, Percutaneous Approach (ICD-10-PCS; 2020-05-28)
PROC: 3E0436Z Introduction of Nutritional Substance into Central Vein, Percutaneous Approach (ICD-10-PCS; 2020-05-29)
DX: K91.71 Accidental puncture and laceration of a digestive system organ or structure during a digestive system procedure (principal); J96.01 Acute respiratory failure with hypoxia; J95.811 Postprocedural pneumothorax; K65.3 Choleperitonitis; A41.9 Sepsis, unspecified organism; R65.21 Severe sepsis with septic shock; T81.44XA Sepsis following a procedure, initial encounter; I10 Essential (primary) hypertension; E11.9 Type 2 diabetes mellitus without complications; E03.9 Hypothyroidism, unspecified; E78.5 Hyperlipidemia, unspecified; I95.9 Hypotension, unspecified; E83.51 Hypocalcemia; Y83.2 Surgical operation with anastomosis, bypass or graft as the cause of abnormal reaction of the patient, or of later complication, without mention of misadventure at the time of the procedure; Y83.8 Other surgical procedures as the cause of abnormal reaction of the patient, or of later complication, without mention of misadventure at the time of the procedure
CPT/HCPCS: C1781; J0131; J1100; J2710; Q9967; S0164

== ENCOUNTER 2020-06-12 13:18 | Inpatient (IN) | payer MEDICARE ==
[~2020-06-12] VITALS: Ht 165.1 cm; Wt 80.0 kg
--- NOTE | 2020-06-12 13:18 | NUR ---
PT ARRIVED TO UNIT VIA STRETCHER WITH MEDICAL TRANSPORT; ARRIVED WITH EMS STAFF. ASSITED TO BED WITH 3 PERSON ASSIST. ALERT AND ORIENTED. C/O 06/06 ABDOMINAL PAIN AND REQUESTS BEDPAN FOR BM AND VOID. PURWIK APPLIED AFTERWARDS. RESPIRATIONS EVEN AND UNLABORED ON 1L 02 VIA NC. DRESSING TO ABDOMEN INTACT WITH YELLOW DRAINAGE; DRESSING TO BUTTOCK CDI. DOUBLE LUMEN MIDLINE IN PLACE TO GUERO PLACED 06/03/20 AND DRESSING REPLACED 06/10/20. ORIENTED TO ROOM AND CALL LIGHT SYSTEM. PLAN OF CARE DISCUSSED. PT ENCOURAGED TO VEBALIZE CONCERNS. STATES UNDERSTANDING. SAFETY MEASURES IN PLACE. CALL LIGHT WITHIN REACH.
--- NOTE | 2020-06-12 14:00 | NUR ---
SPOKE WITH DR. RODRIGUEZ ABOUT ORDERS AND CLARIFED MEDICATIONS. PLAN FOR SURGERY TOMORROW FOR AND ABDOMINAL WASH AND WOUND VAC PLACEMENT. OR NOTIFIED.
--- NOTE | 2020-06-12 17:15 | NUR ---
DRESSING TO ABDOMEN CHANGED DUE TO LARGE AMOUNT OF DRAINAGE ONTO GOWN AND LINEN; YELLOW GREEN DRAINAGE; NO ODOR NOTED. SITE TO LEFT ABD REPACKED WITH AYAKA, ABD PAD, AND PAPER TAPE. STAGE II PRESSURE ULCER TO SACRUM; BARRIER CREAM APPLIED. SCDS ATTACHED AND HEEL PROTECTORS APPLIED. NEW LINEN PROVIDED. AT BEDSIDE. PT UPDATED ON PLANS FOR SURGERY TOMORROW.
[2020-06-12 17:42] VITALS: BP 110/68
[2020-06-12 19:17] VITALS: BP 108/65
--- NOTE | 2020-06-12 20:00 | NUR ---
ASSESSMENT COMPLETED. NO RESP. DISTRESS NOTED. O2 INFUSING PER NC @1LITER/MIN. VSS. X2 LARGE DRESSINGS NOTED TO MID AND LEFT SIDE OF ABDOMEN AND X2 SMALL AQUACEL FOAM DRESSINGS TO RIGHT SIDE OF ABD; CDI. PT. ASSSITED ONTO BEDPAN TO TO TRY AND HAVE A BM; PUREWIC IS IN PLACE PT. IS NOT CURRENTLY GETTING OOB. UPDATED ON POC; DENIES PAIN AT THIS TIME. ENCOURAGED TO CALL FOR ANY NEEDS. CALL LIGHT IS IN REACH. WILL CONTINUE TO MONITOR.
--- NOTE | 2020-06-12 20:30 | NUR ---
SPOKE WITH DR. RODRIGUEZ TO VERIFY IF HE WOULD LIKE LOVENOX GIVEN TONIGHT AND PER MD MABRY TO ADMINISTER.
--- NOTE | 2020-06-12 22:21 | NUR ---
PT. REPORTING RIGHT FLANK PAIN 07/07 AND MEDICATED WITH ORDERED PRN DILAUDID; WILL REASSESS. DRESSING TO LEFT SIDE OF ABDOMEN IS SATURATED WITH GREEN DRAINAGE FROM INCISION AND REMOVED AND CLEANED WITH NS AND NEW GAUZE AND ABD PADS APPLIED. DENIES FURTHER NEEDS. CALL LIGHT IS IN REACH.
[2020-06-13] VITALS (14 sets, daily range): BP systolic 98–128; BP diastolic 46–75
--- NOTE | 2020-06-13 00:22 | NUR ---
NO DISTRESS NOTED; JAZMINE KOO. DRESSINGS REMAIN CDI TO ABDOMEN; PT. IS NOW NPO. SCD'S REAPPLIED; ECOURAGED TO CALL FOR ANY NEEDS. CALL LIGHT IS IN REACH.
--- NOTE | 2020-06-13 02:07 | NUR ---
RESTING IN BED WITH EYES CLOSED; RESP. EVEN AND UNLABORED. CALL LIGHT IS IN REACH.
--- NOTE | 2020-06-13 04:16 | NUR ---
PT. CLEANED OF A SMALL INCONTINENCE OF URINE AND DRAW SHEET AND PAD CHANGED. DENIES NEEDS. VSS. ENCOURAGED TO CALL FOR ANY NEEDS. CALL LIGHT IS IN REACH.
--- NOTE | 2020-06-13 05:24 | NUR ---
PT. C/O BACK PAIN AND MEDICATED WITH ORDERED PRN DIALUDID; WILL REASSESS. ENCOURAGED TO CALL FOR ANY NEEDS.
--- NOTE | 2020-06-13 05:55 | NUR ---
PT. REMOVED DENTURES AND PT. DID OWN ORAL CARE WITH MOUTHWASH. PT. PROVIDED WITH WARM WASHCLOTH TO CLEAN HER FACE AND WASH HER HANDS. GOWN CHANGED. CHECKED FOR INCONTINENCE AND NONE NOTED. ENCOURAGED TO CALL FOR ANY NEEDS.
[2020-06-13 06:30] LABS: IMMATURE GRANULOCYTES 0.5 % (0.0-5.0); MEAN CELL VOLUME 90.2 fL CALC (80.0-100.0); MEAN CORPUSCULAR HGB 26.7 pG CALC (26.0-32.0); MEAN CORPUSCULAR HGB CONC 29.6 g/dL CAL (32.0-36.0); NEUT# 6.25 thou/uL (2.00-7.15); RED BLOOD COUNT 3.07 mill/uL (4.20-5.60); RED CELL DISTRI WIDTH 13.8 % (11.5-15.5)
[2020-06-13 06:32] LABS: HEMATOCRIT 27.7 % (37.0-47.0); HEMOGLOBIN 8.2 g/dl (12.0-16.0)
[2020-06-13 06:37] LABS: ALBUMIN 2.4 g/dL (3.2-5.0); BUN 13 mg/dL (8-23); BUN/CREATININE RATIO 31 (12-20 (CALC)); CREATININE 0.4 mg/dL (0.5-1.0); GFR > 60 ML/MIN (>=60 (CALC)); GFR FOR AFR.AMER. > 60 ML/MIN (>=60 (CALC)); POTASSIUM 4.2 mmol/l (3.5-5.1); SGOT/AST 20 u/l (9-36); TOTAL PROTEIN 5.5 g/dL (6.3-8.2)
[2020-06-13 06:42] LABS: ALKALINE PHOSPHATASE 93 u/l (38-126); ANION GAP 8 (6-22 (CALC)); BILIRUBIN, TOTAL 0.2 mg/dL (0.0-1.4); CARBON DIOXIDE 26 mmol/l (22-30); CHLORIDE 103 mmol/l (95-108); SODIUM 133 mmol/l (137-146)
--- NOTE | 2020-06-13 07:35 | NUR ---
ASSESSMENT IS COMPLETED: IV SITE IS FREE FROM REDNESS OR EDEMA. HR IS REG,PULSES ARE STRONG X4, ABD IS SOFT WITH ACTIVE BS. BREATH SOUNDS ARE CLEAR BILATERALLY. NO C/O SOB, DRESSING ON ABD IS CDI. SCD'S ARE IN PLACE CONTINUE TO OSBERVE AND MONITOR TELE MONITOR INPLACE.
--- NOTE | 2020-06-13 08:06 | NUR ---
PT note Patient is screened for PT intervention. We will recheck and follow in interdisciplinary team meeting as there is not enough information to make a determination at this time
--- NOTE | 2020-06-13 08:14 | NUR ---
PT TRANSPORTED TO OR VIA BED WITH STAFF AND IV SITE.
--- NOTE | 2020-06-13 10:55 | NUR ---
PT RETURNED FROM OR VIA BED WITH STAFF. WOUND VAC PUMP. IV FLUIDS CONTINUE TO OSBERVE AND MONITOR.
--- NOTE | 2020-06-13 12:30 | NUR ---
PT IS RELAXING IN BED "NOT FEELING UP TO WALKING TODAY". IV SITE IS FREE FROM REDNESS OR EDEMA. CONTINUE TO OBSERVE AND MONITOR.
--- NOTE | 2020-06-13 16:15 | NUR ---
PT IS RELAXING IN BED WITH NO DISTRESS NOTED. IV SITE IS FREE FROM REDNESS OR EDEMA.
--- NOTE | 2020-06-13 21:19 | NUR ---
PT MEDICATED AT THIS TIME. WOUND VAC @125 CONTINUOUS SUCTION. PT SLEEPING AT THIS TIME, AWOKE TO MY VOICE AND QUICKLY RETURNED BACK TO SLEEP. NO S/O DISTRESS NOTED.
--- NOTE | 2020-06-14 00:37 | NUR ---
WOUND VAC IN PLACE W/GOOD SUCTION AND SEAL @125. PT WAS SLEEPING SOUNDLY WHEN I ENTERED THE ROOM, BUT AWOKE TO MY VOICE. DENIES ANY NEEDS AT THIS TIME. PUREWICK IN PLACE AND SUCTIONING TO LOW CONTINUOUS SUCTION.
--- NOTE | 2020-06-14 05:01 | NUR ---
PT MEDICATED ORDERS PROVIDE AND V/S ASSESSED. PT ASKED TO BE PLACED ON BEDPAN, DENIED ABILITY TO GET UP TO BSC. PT LEFT ON BEDPAN, PUREWICK IS IN PLACE AND PT REMINDED OF THIS STATING SHE NEEDS TO HAVE A BM.
--- NOTE | 2020-06-14 05:20 | NUR ---
PT OFF OF BEDPAN, NO STOOL OUTPUT AT THIS TIME. PT IS NOW ASKING FOR PAIN MEDICATION/PROVIDED 6/10 ON PAIN SCALE REPORTED. WOUND VAC TO SUCTION 125 W/GOOD SEAL. 600CC OF URINE OUTPUT CLOUDY DARK YELLOW.
[2020-06-14 05:21] VITALS: BP 132/81
[2020-06-14 07:50] VITALS: BP 101/53
--- NOTE | 2020-06-14 07:50 | NUR ---
ASSESSMENT IS COMPLETED: IV SITE IS FREE FROM REDNESS OR EDEMA. HR IS REG,PULSES ARE STRONG, X4, ABD IS SOFT WITH WOUND VAC IN PLACE. PT HAS A SMALL AREA ON THE LEFT SIDE HAS SOME YELLOW DRAINIAGE. DRESSING IS INTACT. PLACED A DRY WASH CLOTH TO CATCH THE DRAINAGE, TELE MONTIO IN PLACE. CONTINUE TO OBSERVE AND MONITOR.
[2020-06-14 10:30] VITALS: BP 111/51
--- NOTE | 2020-06-14 12:30 | NUR ---
PT HAD A BM ON THE BEDPAN. IV SITE IS FREE FROM REDNESS OR EDEMA. CONTINUE TO OSBERVE AND MONITOR. HAD PT TURN FROM SIDE TO SIDE AND BECAME TIRED. PAIN MEDICATION WAS GOVEN.
[2020-06-14 15:00] VITALS: BP 108/51
--- NOTE | 2020-06-14 16:30 | NUR ---
PT IS RELAXING IN BED WITH NO DISTRESS NOTED. IV SITE IS FREE FROM REDNESS OR EDEMA. CONTINUE TO OSBERVE AND MONITOR.,
[2020-06-14 19:08] VITALS: BP 114/63
--- NOTE | 2020-06-14 20:16 | NUR ---
pt assessment completed and medicated w/pm med and for pain 6/10 on pain scale. wound vac to good seal suction @125. purwick is in place @continual low suction with dark yellow cloudy output. oxygen on @1.5Lnc. abd wound vac dressing cdi with good seal visualized. pt denies any other needs at this time. call light w/in reach at side and pt encouraged to call as needs arise.
--- NOTE | 2020-06-14 23:46 | NUR ---
PT IS IN BED WATCHING TV, DENIES ANY NEEDS AT THIS TIME.
[2020-06-15] VITALS (7 sets, daily range): BP systolic 97–130; BP diastolic 55–89
--- NOTE | 2020-06-15 04:04 | NUR ---
PT PLACED ON BEDPAN AND THEN OFF. PT ONLY URINATED. PUREWICK REPLACED TO CONTINUAL LOW SUCTION. PT WAS IN PAIN 7/10 REPORTED FOLLOWING TURNING. ABD DRESSING CDI W/GOOD SEAL TO 125 SUCTION TO WOUND VAC. PT MEDICATED FOR PAIN AT THIS TIME.
--- NOTE | 2020-06-15 05:26 | NUR ---
IV ANTBIOTIC THERAPY ADMINISTERED AT THIS TIME. NO S/O DISTRESS
--- NOTE | 2020-06-15 08:10 | NUR ---
ASSESSMENT IS COMPLETED; IV SITE IS FREE FROM REDNESS OR EDEMA. HR IS REG,PULSES ARE STRONG X4, ABD IS SOFT WITH ACTIVE BS. BREATH SOUNDS ARE CLEAR,BILATERALLY. DRESSING ON ABD WOUND VAC IN PLACE. CONTINUE TO OSBERVE AND MONITOR.
[2020-06-15 10:47] LABS: HEMATOCRIT 25.3 % (37.0-47.0); HEMOGLOBIN 7.5 g/dl (12.0-16.0); IMMATURE GRANULOCYTES 0.8 % (0.0-5.0); MEAN CELL VOLUME 89.4 fL CALC (80.0-100.0); MEAN CORPUSCULAR HGB 26.5 pG CALC (26.0-32.0); MEAN CORPUSCULAR HGB CONC 29.6 g/dL CAL (32.0-36.0); NEUT# 5.34 thou/uL (2.00-7.15); RED BLOOD COUNT 2.83 mill/uL (4.20-5.60); RED CELL DISTRI WIDTH 13.7 % (11.5-15.5)
--- NOTE | 2020-06-15 12:09 | NUR ---
C/O PAIN ON HER RIGHT RIB CAGE AND SIDE. WHEN SHE BREATHES IN AND MOVES. ENCOURAGED TO USE THE ISP.
--- NOTE | 2020-06-15 12:30 | NUR ---
PT IS RELAXING IN BED WITH NO DISTRESS NOTED. IV SITE IS FREE FROM REDNESS OR EDEMA. CONTINUE TO OBSERVE AND MONITOR.
--- NOTE | 2020-06-15 16:23 | NUR ---
CANISTER CHANGED TO DUE TO BEING FULL.
--- NOTE | 2020-06-15 16:30 | NUR ---
PT IS RELAXING IN BED WITH NO DISTRSS NOTED. IV SITE IS FREE FROM REDNESS OR EDEMA.
--- NOTE | 2020-06-15 19:35 | NUR ---
PT CALLED FOR PAIN MEDICATION. MEDICATED PT FOR PAIN AT THIS TIME. PT REPOSITIONED IN THE BED AND PUREWICK REPOSITIONED FOR PLACEMENT, DRAINING DARK YELLOW CLEAR URINE. TV IS ON AND CELLPHONE RINGING, PT ASSISTED AT REACHING FOR FOR AND WATER. DENIES ANY OTHER NEEDS, WILL FOLLOW-UP TO RECHECK PAIN LEVEL.
--- NOTE | 2020-06-15 21:29 | NUR ---
PT SLEEPING, NO S/O DISTRESS.
--- NOTE | 2020-06-16 00:05 | NUR ---
PT MEDICATED W/ANTIBIOTIC THERAPY, PT SLEEPING SOUNDLY. LIGHTS ARE OUT AND TV ARE ON.
--- NOTE | 2020-06-16 01:12 | NUR ---
CONCRETE CURER'S IN BATHING PT AND CHANGING BEDDING. PT MEDICATED FOR PAIN AND PICTURES TAKEN OF COCCYX AREA FOR CHART.
[2020-06-16 04:20] VITALS: BP 121/70
--- NOTE | 2020-06-16 05:58 | NUR ---
PT MEDICATED W/IV ANTIBIOTIC THERAPY AND AM MEDICATION. PT REPORTED PAIN LEVEL 1/10 ON PAIN SCALE, DID NOT MEDICATE AT THIS TIME. ASSISTED PT W/COVERS FOR COMFORT. WOUND VAC @125 W/BLOODY DRAINAGE @50 IN WOUND VAC CANISTER. PUREWICK IN PLACE TO LOW CONTINUOUS SUCTION.
[2020-06-16 08:15] VITALS: BP 131/62
[2020-06-16 08:44] LABS: HEMATOCRIT 27.5 % (37.0-47.0); HEMOGLOBIN 8.2 g/dl (12.0-16.0); MEAN CELL VOLUME 88.7 fL CALC (80.0-100.0); MEAN CORPUSCULAR HGB 26.5 pG CALC (26.0-32.0); MEAN CORPUSCULAR HGB CONC 29.8 g/dL CAL (32.0-36.0); RED BLOOD COUNT 3.1 mill/uL (4.20-5.60); RED CELL DISTRI WIDTH 13.9 % (11.5-15.5)
--- NOTE | 2020-06-16 10:31 | NUR ---
PT'S DAUGHTER VISITING.
--- NOTE | 2020-06-16 10:55 | NUR ---
Physical therapy in room.
--- NOTE | 2020-06-16 10:55 | NUR ---
PT Note Pt. positioned in semi-fowlers position upon entering room. Pt. had agreed to participate in therpay if she can do bed exercises. Ther exercises consisting of ankle pumps, heel slides, hip abduction all bilaterally, UE above head x 20 for improved strength. Tray table and call odonnell by pt. side as exited room. [facility] 6 score 13.
[2020-06-16 11:58] VITALS: BP 135/67
--- NOTE | 2020-06-16 12:06 | NUR ---
ASSESSMENT IS COMPLETED: IV SITE IS FREE FROM REDNESS OR EDEMA. HEART RATE IS REG,PULSES ARE STRONG, X4, ABD IS SOFT WITH WOUND VAC IN PLACE. PT HAS A SMALL AREA ON THE LEFT SIDE HAS SOME YELLOW DRAINIAGE. DRESSING IS INTACT. STAGE 2 PRESSURE WOUND NOTEED ON COCCYX. APPLIED WOUND DRESSING 4X4 FOAM WOUND DRESSING WITH PAPER TAPE. ORDERED AIR MATTRESS TO AID IN COMFORT DUE TO LACK OF MOBILITY. TELE MONTIOR IN PLACE. WILL CONTINUE TO MONITOR.
--- NOTE | 2020-06-16 12:08 | NUR ---
CALLED [facility] ORDERED AIR QUINTANILLA SPOKE WITH DARLEEN SHE GAVE CONFORMATION #[id number]
--- NOTE | 2020-06-16 13:16 | NUR ---
DR. RODRIGUEZ AT BEDSIDE; REMAINING JENI SITE WITH DRAINAGE THAT MD WANTS TO TREAT SURGICALLY TOMORROW MORNING. VERBAL ORDER TO LEAVE WOUND VAC DRESSING IN PLACE TODAY.
--- NOTE | 2020-06-16 16:05 | NUR ---
PATIENT ALERT AND ORIENTED. DENIES PAIN. IV CLEAN AND INTACT. TELE ON.PURWICK IN POSITION AND COLLECTING. CALL COHN WITHIN REACH. WILL CONTINUE TO MONITOR.
[2020-06-16 16:15] VITALS: BP 120/46
--- NOTE | 2020-06-16 17:22 | NUR ---
PT TRANSFERRED TO [facility] WITH 4 PERSON ASSIST TO SLIDE. NOW ASSISTED ONTO BEDPAN. AT BEDSIDE. WOUND VAC INTACT AND DRAINGING AT 125 MMGH. PURWIK CATHETER DRAINING CLEAR YELLOW URINE.
[2020-06-16 19:00] VITALS: BP 126/69
[2020-06-17] VITALS (11 sets, daily range): BP systolic 121–146; BP diastolic 53–84
[2020-06-17 07:22] LABS: MEAN CORPUSCULAR HGB CONC 29.6 g/dL CAL (32.0-36.0); RED BLOOD COUNT 4.07 mill/uL (4.20-5.60)
--- NOTE | 2020-06-17 08:51 | NUR ---
OR AT BEDSIDE. PT OFF UNIT VIA BED IN STABLE CONDITION.
[2020-06-17 08:53] LABS: HEMATOCRIT 35.8 % (37.0-47.0); HEMOGLOBIN 10.6 g/dl (12.0-16.0)
--- NOTE | 2020-06-17 10:41 | NUR ---
therapist made AM attempt to see patient however pt was in OR. Will attempt to see this PM
[2020-06-17 10:45] LABS: ALBUMIN 2.5 g/dL (3.2-5.0); ALKALINE PHOSPHATASE 93 u/l (38-126); ANION GAP 7 (6-22 (CALC)); BILIRUBIN, TOTAL 0.2 mg/dL (0.0-1.4); BUN 6 mg/dL (8-23); BUN/CREATININE RATIO 16 (12-20 (CALC)); CARBON DIOXIDE 29 mmol/l (22-30); CHLORIDE 103 mmol/l (95-108); CREATININE 0.4 mg/dL (0.5-1.0); GFR > 60 ML/MIN (>=60 (CALC)); GFR FOR AFR.AMER. > 60 ML/MIN (>=60 (CALC)); POTASSIUM 3.4 mmol/l (3.5-5.1); SGOT/AST 22 u/l (9-36); SODIUM 135 mmol/l (137-146); TOTAL PROTEIN 5.5 g/dL (6.3-8.2)
--- NOTE | 2020-06-17 11:00 | NUR ---
REPORT TAKEN; ASSESSMENT COMPLETE.V/S ASSESSED, PT IS ORIENTED AND ALERT X3. AWKAKEN TO STIMIMULI. TELE ON. HEALTHY FLUSHES. NO S/O DISTRESS NOTED. WILL CONTINUE TO MONITOR.
--- NOTE | 2020-06-17 12:55 | NUR ---
PATIENT WOUND VAC CHANGED OUT BY COMPANY VAC #[id number] TAKEN FOR CLEANING AND REPLACED WITH #[id number]
--- NOTE | 2020-06-17 13:00 | NUR ---
PATIENT ALERT AND ORIENTED. DENIES PAIN. IV CLEAN AND INTACT. TELE ON.PURWICK IN POSITION AND COLLECTING. CALL COHN WITHIN REACH. WILL CONTINUE TO MONITOR.
--- NOTE | 2020-06-17 14:11 | NUR ---
PT RECEIVED FROM WILFRED FROM PACU. PT IS IN STABLE CONDITION. VITALS ASSESSED, PURWICK AND SCD'S REAPPLIED TO PT. PT A&O X3; VERBALIZED PAIN AT 3-4 ON PAIN SCALE. PT STATED THAT SHE HAD NO APPETITE AT THIS TIME. PT INSTRUCTED TO CALL FOR ANY CONCERNS. CALL COHN PLACED WITHIN REACH. WILL CONTINUE TO MONITOR.
--- NOTE | 2020-06-17 14:28 | NUR ---
therapist made PM attempt however patient reported she was very tired from AM procedure and she would participate tomorrow (tuesday) because her next procedure isnt until . ampac =13
--- NOTE | 2020-06-17 16:29 | NUR ---
[facility], OR MELQU[facility]ADES, CALLED TO NOTIFY NURSE OF PLANNED PROCEDURE SCHEDULED WITH DR. RODRIGUEZ ON Tuesday. PT TO HAVE SAME PROCEDURE TODAY WITH ABDOMINAL WASH OUT AND WOUND VAC PLACEMENT. PT AWARE. RESTING WITH MINIMAL PAIN; VSS. SCDS INTACT TO BLE; WOUND VAC INTACT WITH GOOD SUCTION AND NO LEAKS. TELE ON. OXYGEN ON AT 2L VIA NC.
--- NOTE | 2020-06-17 17:15 | NUR ---
ASSISTED TO BEDPAN FOR LARGE LOOSE BOWEL MOVEMENT. AT BEDSIDE.
--- NOTE | 2020-06-17 20:25 | NUR ---
PT LAYING IN BED RESTING, NO APPARENT DISTRESS, RESPIRATIONS REG & UNLABORED. PHYSICAL ASSESMENT COMPLETE. PT CURRENTLY REPORTS ABD PAIN AT 02/04, PRN PERCOCET ADMINISTERED AND SCHEDULED MEDS ADMINISTERED, SEE E-MAR. ABDOMINAL WOUNDVAC INTACT, SUCTION @ 125mmHg. PT DENIES ANY NEEDS AT THIS TIME. PLAN OF CARE REVIEWED, PT DENIES QUESTIONS, VERBALIZES UNDERSTANDING. ITEMS WITHIN REACH, BED LOCKED IN LOW POSITION W/ BEDRAILS UP X2. CALL COHN WITHIN REACH, AGREES TO CALL PRN.
[2020-06-18 00:24] VITALS: BP 120/74
--- NOTE | 2020-06-18 00:30 | NUR ---
PT APPEARS TO BE SLEEPING COMFORTABLY, NO APPARENT DISTRESS, RESPIRATIONS REGULAR AND UNLABORED. ITEMS REMAIN WITHIN REACH, BED REMAINS LOCKED IN LOW POSITION W/ BEDRAILS UP X2. CALL COHN REMAINS WITHIN REACH.
[2020-06-18 04:00] VITALS: BP 116/69
--- NOTE | 2020-06-18 06:30 | NUR ---
PHYSICAL ASSESMENT UNCHANGED FROM BEGINING OF SHIFT BASELINE ASSESMENT. AM HEMODYNAMICS WNL/ STABLE. PT AFEBRILE. PT DENIES NEEDS AT THIS TIME. ITEMS REMAIN WITHIN REACH, BED REMAINS LOCKED IN LOW POSITION W/ BEDRAILS UP X2. CALL COHN REMAINS WITHIN REACH, AGREES TO CALL PRN.
[2020-06-18 09:00] VITALS: BP 123/67
[2020-06-18 10:30] VITALS: BP 116/54
--- NOTE | 2020-06-18 11:06 | NUR ---
PT IN BED WWITH EYES OPEN AND ABLE TO MAKE NEED KNOWN. HEART RHTHYM REGULAR AND LUNG SOUNDS ARE CLEAR IN UPPER LOBES AND DIMINISHED IN LOWER LOBED. PT DENIES RESPIRATORY CONCERNS AND DENIES COUGHING. BOWEL SOUNDS HYPOACTIVE IN LEFT LOWER QUADRANT. PT HAD MODERATE AMOUNT OF WATERY DARK BROWN STOOLS THIS AM. CONTINENT OF BOWEL AND BLADDER AND ASKING FOR BEDPAN THIS AM. WOUND VAC IN PLACE TO ABDOMEN AND FUNCTIONING AT 125MM/HG. REDNESS NOTED AROUND WOUNDVAC DRESSING. MD IN TO SEE PT THIS AM AND NEW ORDERS FOR NPO AND WOUND VAC CHANGE WITH POSSIBLE DEBRIDEMENT IN AM. PT MADE AWARE OF NEW ORDERS. INCENTIVE SPIROMETRY AT BEDSIDE AND EDUCATED AND ENCOURAGED PT TO USE IT AND PT STATES SHE UNDERSTANDS. MEDICATIONS GIVEN AND TOLERATED WELL. PICC LINE IN PLACE AND FUNCTIONING WITH NO COMPLICATIONS.
--- NOTE | 2020-06-18 13:10 | NUR ---
PT note was seen for therex and therapeutic activities. Began with pt in supine performing ankle pumps 2x10, quad sets 2x10, glute sets 2x10, SAQ 2x10, heel slides 2x10, isometric hamstring with 5SH 1x10, pillow squeeze adduction 2x10, abduction with manual resistance 2x10. Then bed mobility with VC for optimal hand placement and pt transitioning to sitting upright on EOB where she performed LAQ 2x10. Pt remained sitting upright unsupported for several minutes in order to increase paraspinal musculature strength and static sitting balance. Then pt transitioned back to supine in bed with call light near.
[2020-06-18 15:00] VITALS: BP 117/52
--- NOTE | 2020-06-18 17:42 | NUR ---
PT IN BED WITH EYES OPEN AND ABLE TO VERBALIZE NEEDS. MEDICATED FOR ABDOMINAL PAIN AND EFFECTIVE. WOUND VAC RUNNIONG WITH NO COMPLICATIONS NOTED. MEAL AND FLUID INTAKE FAIR. CONTINUES TO HAVE FLUIDS RUNNING AT 20ML AND TOLERATING WELL. PICC LINE FLUSHING WITH NO COIMPLICATIONS NOTED. SAT ON SIDE OF BED YODAY WITH THERAPY ASSIST AND TOLERATED WELL. CALL LIGHT WITHIN REACH AND BED IN LOWEST POSITION. WILL CONTINUE TO OBSERVE
--- NOTE | 2020-06-18 19:45 | NUR ---
PT LAYING IN BED RESTING, NO APPARENT DISTRESS, RESPIRATIONS REG & UNLABORED. PHYSICAL ASSESMENT COMPLETE. PT CURRENTLY REPORTS ABD PAIN AT 05/07, PRN DILAUDID ADMINISTERED AND SCHEDULED MEDS ADMINISTERED, SEE E-MAR. ABDOMINAL WOUNDVAC ALARMING LEAK, REINFORCED WITH NON-OCCLUSIVE DRESSING BY Eddi TRINH LPN. LEAK SUCCESFULLY RESOLVED. SUCTION @ 125mmHg. PT DENIES ANY NEEDS AT THIS TIME. PLAN OF CARE REVIEWED, PT DENIES QUESTIONS, VERBALIZES UNDERSTANDING. ITEMS WITHIN REACH, BED LOCKED IN LOW POSITION W/ BEDRAILS UP X2. CALL COHN WITHIN REACH, AGREES TO CALL PRN.
[2020-06-18 23:50] VITALS: BP 132/76
[2020-06-19] VITALS (11 sets, daily range): BP systolic 107–146; BP diastolic 66–81
--- NOTE | 2020-06-19 | NUR ---
PT NPO FOR OR IN AM AT THIS TIME.
[2020-06-19 05:20] LABS: MEAN CELL VOLUME 90.9 fL CALC (80.0-100.0); MEAN CORPUSCULAR HGB 26.2 pG CALC (26.0-32.0); MEAN CORPUSCULAR HGB CONC 28.8 g/dL CAL (32.0-36.0); RED BLOOD COUNT 2.86 mill/uL (4.20-5.60); RED CELL DISTRI WIDTH 14.3 % (11.5-15.5)
[2020-06-19 05:34] LABS: HEMOGLOBIN 7.5 g/dl (12.0-16.0)
[2020-06-19 05:40] LABS: ALBUMIN 2.2 g/dL (3.2-5.0); ALKALINE PHOSPHATASE 82 u/l (38-126); ANION GAP 4 (6-22 (CALC)); BILIRUBIN, TOTAL 0.2 mg/dL (0.0-1.4); BUN 7 mg/dL (8-23); BUN/CREATININE RATIO 18 (12-20 (CALC)); CARBON DIOXIDE 29 mmol/l (22-30); CHLORIDE 105 mmol/l (95-108); CREATININE 0.4 mg/dL (0.5-1.0); GFR > 60 ML/MIN (>=60 (CALC)); GFR FOR AFR.AMER. > 60 ML/MIN (>=60 (CALC)); POTASSIUM 3.5 mmol/l (3.5-5.1); SGOT/AST 20 u/l (9-36); SODIUM 135 mmol/l (137-146); TOTAL PROTEIN 5.2 g/dL (6.3-8.2)
--- NOTE | 2020-06-19 08:46 | NUR ---
RECEIVED REPORT FROM JT.PT IN BED WITH EYES OPEN AND ABLE TO VERBALIZE NEEDS. ASSESSMENT COMPLETE. WOUND VAC RUNNIONG WITH NO COMPLICATIONS NOTED. RESPIRATIONS EVEV AND UNLABORED WITH NO SIGNS OF DISTRESS. DENIES PAIN AT THIS TIME. PICC LINE FLUSHING WITH NO COIMPLICATIONS NOTED. CALL LIGHT WITHIN REACH AND BED IN LOWEST POSITION. WILL CONTINUE TO MONITOR.
--- NOTE | 2020-06-19 10:24 | NUR ---
Physical therapy treatment on hold per patient request, she is getting ready for a procedure. On site PT informed of same (Ma. Diane Mcgowan).
--- NOTE | 2020-06-19 13:48 | NUR ---
FOAM PLACE ON PT BUTTOCKS. PICTURE TAKEN. PT TAKEN TO OPERTING ROOM IN STABLE CONDITION BY O.R. STAFF.
--- NOTE | 2020-06-19 16:26 | NUR ---
PT RETURNED TO ROOM VIA BED WITH OR STAFF IN STABLE CONDITION; ALERT AND ORIENTED X 3. C/O INTERMITTENT CRAMPING ABDOMINAL PAIN. RESPIRATIONS EVEN AND UNLABORED ON OXYGEN 2L VIA NC. NEW WOUND VAC DRESSING IN PLACE WITH SUCTION AT 125MMGH; NO LEAKING NOTED ALL ABDOMINAL DRESSINGS CDI. VSS. SCDS REAPPLIED. DL GUERO PICC SALINE LOCKED. UPDATED THAT PT IS BACK IN ROOM AND STABLE. SAFETY MEASURES IN PLACE. CALL LIGHT WITHIN REACH.
[2020-06-19 17:10] LABS: HEMATOCRIT 29.3 % (37.0-47.0); HEMOGLOBIN 8.5 g/dl (12.0-16.0); MEAN CELL VOLUME 89.9 fL CALC (80.0-100.0); MEAN CORPUSCULAR HGB 26.1 pG CALC (26.0-32.0); RED BLOOD COUNT 3.26 mill/uL (4.20-5.60); RED CELL DISTRI WIDTH 14.3 % (11.5-15.5)
--- NOTE | 2020-06-19 19:00 | NUR ---
REPORT RECEIVED FROM Brittany MATTHEWS RN, CARE OF PT ASSUMED @ THIS TIME.
--- NOTE | 2020-06-19 19:01 | NUR ---
POST OP VS COMPLETE AND WNL; AT BEDSIDE. PT RESTING IN BED COMFORTABLY WITH NO REQUESTS OR COMPLAINTS. TOLERATED FULL LIQUID DINNER. CALL LIGHT WITHIN REACH.
--- NOTE | 2020-06-19 20:15 | NUR ---
PT RESTING IN BED WATCHING TV. NO APPARENT DISTRESS. RESPIRATIONS REGULAR AND UNLABORED. PHYSICAL ASSESMENT COMPLETE. WOUND VAC TO ABD SEALED AND DRAINING TO 125mmHg SUCTION. DRAINAGE IS SANGUINOUS. REPORTS DULL ABD PAIN 6/10 AND REQUEST ANALGESIC. PRN DILAUDID ADMINISTERED, SCHEDULED LOVENOX ADMINISTERED. SEE E-MAR. PT DENIES FURTHER NEEDS WHEN ASKED. ACCEPT OFFER OF HS SNACK. SALTINE CRACKERS AND GINGERALE PROVIDED. PT ABLE TO TOLERATE. PLAN OF CARE REVIEWED, EDUCATION ON SPLINTING, COUGHING, DEEP BREATHING, INCENTIVE SPIROMETRY, TURNING, AND PAIN SCALE REPORTING REVIEWED. PT VERBALIZES UNDERSTANDING OF PLAN OF CARE AND PROVIDED EDUCATION. DENIES QUESTIONS. ITEMS WITHIN PTS REACH. BED LOCKED IN LOW POSITION WITH BEDRAIL UP X2. CALL COHN WITHIN REACH, AGREES TO CALL PRN.
--- NOTE | 2020-06-20 00:05 | NUR ---
PT APPEARS TO BE SLEEPING COMFORTABLY. NO APPARENT DISTRESS. RESPIRATIONS REGULAR AND UNLABORED. ITEMS REMAIN WITHIN PTS REACH. BED REMAINS LOCKED IN LOW POSITITON W/ BEDRAILS UP X2 AND BED ALRAM ON. CALL COHN REMAINS WITHIN REACH.
--- NOTE | 2020-06-20 00:05 | NUR ---
PT APPEARS TO BE SLEEPING COMFORTABLY. NO APPARENT DISTRESS. RESPIRATIONS REGULAR AND UNLABORED. ITEMS REMAIN WITHIN PTS REACH. BED REMAINS LOCKED IN LOW POSITITON W/ BEDRAILS UP X2. CALL COHN REMAINS WITHIN REACH.
[2020-06-20 03:35] VITALS: BP 117/69
--- NOTE | 2020-06-20 04:10 | NUR ---
JEWELSMITH REPORTS PT HASNT VOIDED THIS SHIFT. PT DENIES DISCOMFORT OR FEELING THE NEED TO VOID. BLADDER SCAN SHOWS 157ML. AM LABS DRAWN FROM R-PICC. PT DENIES ANY NEEDS AT THIS TIME. CALL COHN REMAINS WITHIN REACH.
[2020-06-20 04:21] LABS: HEMATOCRIT 26.2 % (37.0-47.0); HEMOGLOBIN 7.6 g/dl (12.0-16.0); MEAN CELL VOLUME 90.3 fL CALC (80.0-100.0); MEAN CORPUSCULAR HGB 26.2 pG CALC (26.0-32.0); RED BLOOD COUNT 2.9 mill/uL (4.20-5.60); RED CELL DISTRI WIDTH 14.5 % (11.5-15.5)
[2020-06-20 04:57] LABS: ALBUMIN 2.3 g/dL (3.2-5.0); ALKALINE PHOSPHATASE 84 u/l (38-126); ANION GAP 3 (6-22 (CALC)); BUN 8 mg/dL (8-23); BUN/CREATININE RATIO 18 (12-20 (CALC)); CARBON DIOXIDE 31 mmol/l (22-30); CHLORIDE 104 mmol/l (95-108); CREATININE 0.4 mg/dL (0.5-1.0); GFR > 60 ML/MIN (>=60 (CALC)); GFR FOR AFR.AMER. > 60 ML/MIN (>=60 (CALC)); POTASSIUM 3.1 mmol/l (3.5-5.1); SGOT/AST 20 u/l (9-36); SODIUM 135 mmol/l (137-146); TOTAL PROTEIN 5.1 g/dL (6.3-8.2)
[2020-06-20 04:58] LABS: BILIRUBIN, TOTAL 0.1 mg/dL (0.0-1.4)
--- NOTE | 2020-06-20 06:16 | NUR ---
PT HAS NOT VOIDED. AM LABS ASSESSED. WILL ENDORSE TO ONCOMING NURSE IN AM. HEMODYNAMICS WNL/ STABLE. PT AFEBRILE. PT DENIES NEEDS AT THIS TIME. ITEMS REMAIN WITHIN REACH, BED REMAINS LOCKED IN LOW POSITION W/ BEDRAILS UP X2. CALL COHN REMAINS WITHIN REACH, AGREES TO CALL PRN.
[2020-06-20 08:05] VITALS: BP 123/77
--- NOTE | 2020-06-20 10:07 | NUR ---
MS. SALDANA WAS SEEN RESTING IN BED WITH HOB ELEVATED. SHE COMPLAINED OF ABDOMINAL PAIN BUT AGREED TO PARTICIPATE WITH PHYS THERAPY. SHE WAS GIVEN MIN A TO PERFORM SUPINE TO SIT ON EDGE OF BED WHILE SHE HOLDS ONTO BED RAILS TO MAINTAIN SITTING BALANCE. SHE INDEPENDENTLY SCOOTED FORWARD WHILE PUSHING SELF UP ON BED. SIT TO STAND REQUIRED VERBAL CUES AND MAX A WITH RW. THEN SHE PIVOT TRANSFERRED TO SIT IN A CHAIR ON THE BEDSIDE. DESCENT CONTROL WAS POOR WITH COMPLAINT OF PAIN SHE SAT DOWN. PT REPORTED MINIMAL DIZZINESS WHICH RESOLVED QUICKLY. NO SOB NOTED DURING THE ACTIVITIES. PT REPORTS FEELING BETTER SITTING UP IN CHAIR. THEREX SUCH AROM OR B UE AND SITTING MARCHES WERE DEMONSTRATED AND ENCOURAGED PT TO PERFORM WITHIN THE DAY. PT UNDERSTOOD AND AGREED. AMPAC SCORE TODAY: 11 POINTS PT WILL BENEFIT FROM CONTINUED THERAPEUTIC DYNAMIC ACTIVITIES AND GEN. STRENGTHENING TO IMPROVE FUNCTIONAL LEVEL.
[2020-06-20 10:55] VITALS: BP 111/69
--- NOTE | 2020-06-20 14:48 | NUR ---
ALERT AND ORIENTED. ABLE TO VERBALIZE NEEDS. PT'S WOUND VAC INTACT AND RUNNING AT 125. ASSISTED OOB BY PT. PT STATES PAIN IS MANAGED BY IV DILAUDID. GOOD APETITITE. VISITOR IS AT BEDSIDE AT THIS TIME. PT RESTING COMFORTABLY AT THIS TIME.
--- NOTE | 2020-06-20 14:50 | NUR ---
PLAN IS FOR PATIENT TO BE NPO AFTER MIDNIGHT. SX TO CHANGE WOUND VAC IN THE AM. PATIENT MADE AWARE. D/C PLAN IS FOR REHAB.
[2020-06-20 15:11] VITALS: BP 119/67
[2020-06-20 18:45] VITALS: BP 135/73
--- NOTE | 2020-06-20 19:56 | NUR ---
1955-Pt assessment complete. Pt complains of pain, pt medicated. No s/s of distress. Bed low and locked. Call light and phone within reach. Pt stable. Will continue to monitor.
[2020-06-20 23:05] VITALS: BP 105/60
--- NOTE | 2020-06-20 23:56 | NUR ---
5869-Pt resting in bed. No s/s of distress. Bed low and locked, call light and phone within reach. Pt stable. Will continue to monitor.
[2020-06-21] VITALS (11 sets, daily range): BP systolic 111–140; BP diastolic 56–76
--- NOTE | 2020-06-21 04:23 | NUR ---
0423-Pt lying in bed. Pt needed labs drawn. Flushed PICC with 10 ml of saline, flushed well. I attempted to withdraw blood and could only obtain 4 ml. After 2 additional attempts I was unsuccessful. Almaz from ICU was called and her recommendation is to obtain an order for cath flow. Bed low and locked. Call light and phone within reach. Pt stable, no s/s of distress. Will continue to monitor.
[2020-06-21 05:47] LABS: ALBUMIN 2.4 g/dL (3.2-5.0); ALKALINE PHOSPHATASE 94 u/l (38-126); ANION GAP 5 (6-22 (CALC)); BUN 7 mg/dL (8-23); BUN/CREATININE RATIO 17 (12-20 (CALC)); CARBON DIOXIDE 30 mmol/l (22-30); CHLORIDE 103 mmol/l (95-108); CREATININE 0.4 mg/dL (0.5-1.0); GFR > 60 ML/MIN (>=60 (CALC)); GFR FOR AFR.AMER. > 60 ML/MIN (>=60 (CALC)); POTASSIUM 3.4 mmol/l (3.5-5.1); SGOT/AST 22 u/l (9-36); SODIUM 134 mmol/l (137-146); TOTAL PROTEIN 5.3 g/dL (6.3-8.2)
[2020-06-21 06:05] LABS: HEMATOCRIT 27.3 % (37.0-47.0); HEMOGLOBIN 7.8 g/dl (12.0-16.0); MEAN CELL VOLUME 90.1 fL CALC (80.0-100.0); MEAN CORPUSCULAR HGB 25.7 pG CALC (26.0-32.0); MEAN CORPUSCULAR HGB CONC 28.6 g/dL CAL (32.0-36.0); RED BLOOD COUNT 3.03 mill/uL (4.20-5.60); RED CELL DISTRI WIDTH 14.5 % (11.5-15.5)
[2020-06-21 06:16] LABS: BILIRUBIN, TOTAL 0.2 mg/dL (0.0-1.4)
--- NOTE | 2020-06-21 09:27 | NUR ---
PT RESTING COMFORTABLY. ABLE TO VERBALIZE NEEDS. NO C/O PAIN AT THIS TIME. ALL PO MEDS ON HOLD, NPO FOR WOUND VAC CHANGE. SCANT BM LAST NIGHT. VOIDING. WEENED OF O2, PAO2 100%. IV TREATED WITH CATHFLO. HUBS CHANGED. ALL DRESSINGS INTACT. CALL LIGHT IN REACH.
--- NOTE | 2020-06-21 17:36 | NUR ---
HUBS CHANGED TO DOUBLE LUMEN POWER PICC. BOTH LUMENS FLUSH WELL. BLOOD RETURN NOTED WELL.
--- NOTE | 2020-06-21 17:43 | NUR ---
ASKED PT IF SHE HAD A BM TODAY. MT STATED NO. I ASKED IF SHE WOULD LIKE PRUNE JUICE. PT DENIED AT THIS TIME.
--- NOTE | 2020-06-21 17:48 | NUR ---
PER OR NURSE, PT WOUND VAC WILL BE CHANGED OUT ON TUESDAY. PROBABLY AT BEDSIDE OR IN OR. MD TO DETERMINE.
--- NOTE | 2020-06-21 19:20 | NUR ---
PT. SITTING UP WATCHING TV; NO DISTRESS NOTED;DENIES NEEDS/PAIN AT THIS TIME. WOUND VAC IN PLACE TO ABDOMEN WITH MAE NOTED; WOUND VAC SET TO 125MM/HG CONTINUOUSLY AND 25MLS NOTED TO CANISTER AT THIS TIME. SCD'S IN PLACE TO BLE. PICC INTACT TP GUERO WITH NS @[facility]. ENCOURAGED TO CALL FOR ANY NEEDS. CALL LIGHT IS IN REACH.
--- NOTE | 2020-06-21 20:29 | NUR ---
PT. ASSISTED ON AND OFF BEDPAN AND C/O ABD PAIN 5/10; MEDICATED WITH ORDERED PRN PERCOCET; WILL REASSESS.
--- NOTE | 2020-06-21 22:20 | NUR ---
PT. SITTING UP IN BED WATCHING TV. NO RESP. DISTRESS NOTED. PICC LINE DRESSING CHANGED IT IS OUT OF DATE PER PROTOCOL ; PT. TOLERATED WELL. FLUSHED AND SL. ENCOURAGED TO CALL FOR ANY NEEDS. VOICES NO CONCERNS OR NEEDS AT THIS TIME.
[2020-06-22 00:04] VITALS: BP 113/62
--- NOTE | 2020-06-22 02:36 | NUR ---
RESTING IN BED WITH EYES CLOSED; RESP. EVEN AND UNLABORED. CALL LIGHT IS IN REACH.
--- NOTE | 2020-06-22 03:52 | NUR ---
PT. PULLED UP IN BED WITH NO RESP. DISTRESS NOTED; WOUND VAC IN PLACE AND DRAINAGE JAMIR NOTED AT 35MLS TO CANISTER AND REMAINS RUNNING CONTINUOUS AT 125MM/HG. PT. PROVIDED WITH PRUNE JUICE TO ASSIST WITH BM. ATTEMPTED TO DRAW AM LABS AND NO BLOOD RETURN FROM PORTS, THEY DID FLUSH WUTHOUT DIFFICULTY. FLUSHED WITH NS AND HEPARIN. PHLEBOTOMY TO DRAW AM LABS.
[2020-06-22 04:22] VITALS: BP 130/75
[2020-06-22 05:42] LABS: HEMATOCRIT 26.7 % (37.0-47.0); HEMOGLOBIN 7.7 g/dl (12.0-16.0); MEAN CELL VOLUME 89.9 fL CALC (80.0-100.0); MEAN CORPUSCULAR HGB 25.9 pG CALC (26.0-32.0); MEAN CORPUSCULAR HGB CONC 28.8 g/dL CAL (32.0-36.0); RED BLOOD COUNT 2.97 mill/uL (4.20-5.60); RED CELL DISTRI WIDTH 14.6 % (11.5-15.5)
[2020-06-22 05:48] LABS: ANION GAP 6 (6-22 (CALC)); BUN 5 mg/dL (8-23); BUN/CREATININE RATIO 12 (12-20 (CALC)); CARBON DIOXIDE 30 mmol/l (22-30); CHLORIDE 104 mmol/l (95-108); CREATININE 0.5 mg/dL (0.5-1.0); GFR > 60 ML/MIN (>=60 (CALC)); GFR FOR AFR.AMER. > 60 ML/MIN (>=60 (CALC)); POTASSIUM 3.6 mmol/l (3.5-5.1); SODIUM 136 mmol/l (137-146)
[2020-06-22 07:22] VITALS: BP 117/67
--- NOTE | 2020-06-22 07:22 | NUR ---
PT SITTING IN BED WATCHING TV. A&O X3. NO DISTRESS NOTED. SCD'S TO BLE IN PLACE. WOUND VAC IN PLACE SET TO 125 MM/HG WITH 35 ML OF OUTPUT NOTED AT THIS TIME. DOUBLE LUMEN PICC INTACT. PT REPORTS PAIN 2/10 AT THIS TIME. IS DEVICE AT BEDSIDE, PT DEMONSTRATING PROPER USE OF DEVICE, GOAL SET AT 1500, REPITITIONS X10. ENCOURAGED PT TO USE DEVICE EVERY HOUR WHILE AWAKE X10. PT VERBALIZED UNDERSTANDING. NO OTHER NEEDS AT THIS TIME. ASSESSMENT COMPLETED. DISCUSSED POC. CALL LIGHT IN REACH. CONTINUE TO MONITOR.
[2020-06-22 11:18] VITALS: BP 110/64
--- NOTE | 2020-06-22 12:11 | NUR ---
[facility] NOTIFIED OF D/C TELEMETRY ORDER PLACED BY TRISH GAMBINO
--- NOTE | 2020-06-22 15:20 | NUR ---
ASSISTED PT TO RECLINER. PT TOLERATED WELL. COMMON USED ITEMS WITHIN REACH. CALL LIGHT IN REACH. CONTINUE TO MONITOR.
[2020-06-22 19:00] VITALS: BP 125/75
--- NOTE | 2020-06-22 19:48 | NUR ---
PT. SITTING UP IN BED ON AIR MATTRESS WATCHING TV; NO DISTRESS NOTED; DENIES NEEDS/PAIN. PICC LINE INTACT TO GUERO AND FLUSHED WITH NS. PURPLE LUMEN WITH BLOOD RETURN AND RED ONE WITHOUT AT THIS TIME. ENCOURAGED TO REPOSITION AND USE I/S; VERBALIZES UNDERSTANDING. WOUND VAC IN PLACE TO ABDOMEN AND SET TO 125MM/HG AND 50MLS NOTED TO CANISTER. UPDATED ON POC. CALL LIGHT IS IN REACH. WILL CONTINUE TO MONITOR.
--- NOTE | 2020-06-22 23:48 | NUR ---
WOND VAC MACHINE SHOWING A LEAK ; APPLIED ANOTHER WOUND VAC TRANSPARENT DRESSING OVER TOP LEAK AND NOW WORKING PROPERLY. PT. ASSISTED ON AND OFF BEDPAN AND VOIDED 600MLS OF CLEAR YELLOW URINE. C/O PAIN 5/10 AND MEDICATED WITH ORDERED PRN PERCOCET; WILL REASSESS.
[2020-06-23] VITALS (7 sets, daily range): BP systolic 110–140; BP diastolic 64–82
--- NOTE | 2020-06-23 03:30 | NUR ---
AM LABS DRAWN AND PT. DENIES NEEDS. CALL LIGHT IS IN REACH.
[2020-06-23 03:47] LABS: HEMATOCRIT 23.4 % (37.0-47.0); MEAN CELL VOLUME 89.7 fL CALC (80.0-100.0); MEAN CORPUSCULAR HGB 26.8 pG CALC (26.0-32.0); MEAN CORPUSCULAR HGB CONC 29.9 g/dL CAL (32.0-36.0); RED BLOOD COUNT 2.61 mill/uL (4.20-5.60); RED CELL DISTRI WIDTH 14.6 % (11.5-15.5)
[2020-06-23 04:05] LABS: ANION GAP 5 (6-22 (CALC)); BUN 7 mg/dL (8-23); BUN/CREATININE RATIO 18 (12-20 (CALC)); CARBON DIOXIDE 30 mmol/l (22-30); CHLORIDE 104 mmol/l (95-108); CREATININE 0.4 mg/dL (0.5-1.0); GFR > 60 ML/MIN (>=60 (CALC)); GFR FOR AFR.AMER. > 60 ML/MIN (>=60 (CALC)); POTASSIUM 3.5 mmol/l (3.5-5.1); SODIUM 135 mmol/l (137-146)
--- NOTE | 2020-06-23 04:52 | NUR ---
NOTIFIED MD OF CURRENT H/H THIS AM AND OF YESTERDAYS H/H WELL TREND THIS WEEK. NO NEW ORDERS RECEIVED.
--- NOTE | 2020-06-23 05:27 | NUR ---
PT. C/O GENERALIZED PAIN AND MEDICATED WITH ORDERED PRN PERCOCET; WILL REASSESS. DENIES FURTHER NEEDS.
--- NOTE | 2020-06-23 06:10 | NUR ---
[id number]. VAUGHAN NOTIFIED THIS DISULFURIZER TENDER HE WOULD NOW LIKE ONE UNIT OF PRBC'S ORDERED. NOTIFIED PT. AND PT. IN AGREEMENT WITH BLOOD TRANSFUSION AND SIGNED CONSENT . PT. IS EDUCATED ON S/S OF REACTIONS AND VERBALIZES UNDERSTANDING. TYPE AND SCREEN OBTAINED AND THIS DISULFURIZER TENDER AND SALES AND SERVICE OFFICER BLOOD BANDED PT. AT THIS TIME.
--- NOTE | 2020-06-23 06:25 | NUR ---
BLOOD TUBING AND NS @[facility] HUNG; AWAITING LAB TO CALL WHEN BLOOD IS READY.
--- NOTE | 2020-06-23 08:33 | NUR ---
PTS BLOOD TRANSFUSION BEGAN AT 0818. PT TOLERATING PROCEDURE WELL.
--- NOTE | 2020-06-23 09:52 | NUR ---
PT. SLEEPING IN BED ON AIR MATTRESS; NO DISTRESS NOTED; DENIES NEEDS/PAIN. PICC LINE INTACT TO GUERO AND FLUSHED WITH NS. PURPLE LUMEN WITH BLOOD RETURN AND RED ONE WITHOUT AT THIS TIME. ENCOURAGED TO REPOSITION AND USE I/S; VERBALIZES UNDERSTANDING. WOUND VAC IN PLACE TO ABDOMEN AND SET TO 125MM/HG AND 50MLS NOTED TO CANISTER. UPDATED ON POC. ALL SAFETY PRECAUTIOS IN PLACE; CALL LIGHT IS IN REACH. WILL CONTINUE TO MONITOR.
--- NOTE | 2020-06-23 11:15 | NUR ---
PT Note Pt was waiting for Dr to see if she was being discharged but did agree to participate in some bed exercises. Pt began by executing heel slides, ankle pumps and performing UE arm movements. Supine>sit(independent) at bed side where she performed LAQ. sit>supine (independent) as she laid back in bed. Tray table and abbey odonnell w/n pt. reach as exited room. [facility] 6 score is 14
--- NOTE | 2020-06-23 11:29 | NUR ---
PT FINISHED ONE UNIT OF BLOOD.; TOLERATED THE TRANSFUSION WELL.
--- NOTE | 2020-06-23 11:30 | NUR ---
PT PRE MEDICATED PER DR RODRIGUEZ FOR DRESSING CHANGE. DR RODRIGUEZ AT BEDSIDE TO CLEAN, SUCTION AND APPLY NEW DRESSING TO PATIENTS ABDOMENAL WOUND. WOUND VACUUM APPLIED. PT TOLERTED THE PROCEDURE WELL. DR HOFFMANED PT POC.
--- NOTE | 2020-06-23 13:25 | NUR ---
PT RESTING AT BED SIDE, APPEARS TO BE COMFORTABLE IN NO DISTRESS. CHANGED DRESSING APPEARS TO INTACT AND WOULD VACUUM IS IN PLACE.
--- NOTE | 2020-06-23 15:38 | NUR ---
Clinician attempted to see pt at 10:45am however pt declined verbalizing she was waiting to be seen by her doctor.
--- NOTE | 2020-06-23 17:04 | NUR ---
O.T. IDENTIFIED PT. BY NAME AND . PATIENT WAS SUPINE IN BED AND AGREED TO GET OUT OF BED TO CHAIR AND PERFORMED SUP -> SIT WITH MIN A USING BED RAIL. PATIENT SAT AT EOB X 2 MIN WITH FAIR SIT BALANCE THEN PERFORMED SIT -> STAND WITH MOD A, USED R.W. TO PIVOT TO CHAIR WITH MIN A AND VCS FOR SAFETY/PROPER HAND PLACEMENT. PATIENT PERFORMED GROOMING I'LY. PATIENT NEEDED ENCOURAGEMENT TO PARTICIPATE STATING "I GOT OUT OF BED ONCE ALREADY TODAY." AMPAC SCORE OF 17 INDICATES D/C TO SNF/IRF.
--- NOTE | 2020-06-23 17:08 | NUR ---
pt was seen for stand pivot transfer training . With max assist x1 pt was able to stand pivot transfer to recliner. Max assist x1 to transfer back to bed. ampac=14
--- NOTE | 2020-06-23 19:53 | NUR ---
ASSESSMENT COMPLETED. PICC LINE TO GUERO INTACT AND SL. UPDATED ON POC. WOUND VAC IN PLACE AND SET TO 125MM/HG BROWN COLORED DRAINAGE NOTED TO CANISTER. PT. C/O ABD PAIN 5/10 AND MEDICATED WITH ORDERED PRN PERCOCET; WILL REASSESS. ENCOURAGED TO CALL FOR ANY NEEDS. PO FLUIDS OFFERED.
--- NOTE | 2020-06-23 23:05 | NUR ---
RESTING IN BED WITH EYES CLOSED; NO DISTRESS NOTED; CALL LIGHT IS IN REACH. WILL CONTINUE TO MONITOR.
--- NOTE | 2020-06-24 02:10 | NUR ---
RESTING IN BED AWAKE AND VOICES NO CONCERNS; DENIES NEEDS. CALL LIGHT IS IN REACH.
[2020-06-24 03:39] VITALS: BP 134/79
--- NOTE | 2020-06-24 04:15 | NUR ---
PT. ASSISTED ON AND OFF OF BEDPAN AND REPORTS ABD PAIN 5/10; MEDICATED WITH ORDERED PRN PERCOCET; WILL REASSESS. AM LABS DRAWN VIA PICC LINE AND FLUSHED PER PROTOCOL. REPOSITIONED IN BED AND PHOTO OBTAINED FOR CHART OF BUTTOCKS. WOUND VAC INTACT AND WORKING PROPERLY; 40MLS OF BROWN DRAINAGE NOTED TO CANISTER. FRESH ICE WATER GIVEN. DENIES FURTHER NEEDS. CALL LIGHT IS IN REACH.
[2020-06-24 05:23] LABS: HEMOGLOBIN 8.8 g/dl (12.0-16.0); MEAN CELL VOLUME 86.7 fL CALC (80.0-100.0); MEAN CORPUSCULAR HGB 25.4 pG CALC (26.0-32.0); MEAN CORPUSCULAR HGB CONC 29.3 g/dL CAL (32.0-36.0); RED BLOOD COUNT 3.46 mill/uL (4.20-5.60); RED CELL DISTRI WIDTH 16.2 % (11.5-15.5)
[2020-06-24 05:54] LABS: ANION GAP 8 (6-22 (CALC)); BUN 6 mg/dL (8-23); BUN/CREATININE RATIO 13 (12-20 (CALC)); CARBON DIOXIDE 28 mmol/l (22-30); CHLORIDE 103 mmol/l (95-108); CREATININE 0.4 mg/dL (0.5-1.0); GFR > 60 ML/MIN (>=60 (CALC)); GFR FOR AFR.AMER. > 60 ML/MIN (>=60 (CALC)); POTASSIUM 3.6 mmol/l (3.5-5.1); SODIUM 135 mmol/l (137-146)
[2020-06-24 08:10] VITALS: BP 122/69
--- NOTE | 2020-06-24 09:05 | NUR ---
PHYSICAL THERAPY WITH PT. PT UP TO THE CHAIR.
--- NOTE | 2020-06-24 09:22 | NUR ---
RECEIVED REPORT FROM NURSE ALVARENGA. ASSESMENT AND VITALS COMPLETE. PT ALERT AND ORIENTED TIMES 3. BREATHS ARE EVEN AND UNLABORED ON 2 LITERS OF OXYGEN. WOUND VAC INTACT, NO S/S OF INFECTION. PT IS AFEBRILE. NO DISTRESS NOTED. PAIN ADDRESSED WITH PRN MEDICATION. ENCOURAGED TO CALL FOR ANY NEEDS. CALL LIGHT WITHIN REACH.
--- NOTE | 2020-06-24 12:06 | NUR ---
AM treatment pt was seen for stand pivot transfer training. Supine to sitting on EOB with min assist. Sit to stand with max assist x1. Stand pivot transfer to recliner with max assist x1. ampac=13
--- NOTE | 2020-06-24 12:19 | NUR ---
PM treatment pt was seen for therex. SAQ with towel under knee 2x10, ankle pumps 2x10, quad setting with 5SH 2x10, hip adduction with towel 2x10, hip abduction with resistance 2x10, BUE AROM, dorsiflexion with manual resistance 2x10 ampac =13
--- NOTE | 2020-06-24 12:58 | NUR ---
DR RODRIGUEZ BEDSIDE WITH PT. DISCUSSING DISCHAGE PLANS.
[2020-06-24 15:00] VITALS: BP 140/79
[2020-06-24 19:20] VITALS: BP 141/78
--- NOTE | 2020-06-24 20:46 | NUR ---
ASSESSMENT COMPLETED. PT. IS SITTING UP IN BED ON AIR MATTRESS WATCHING TV; NO RESP. DISTRESS NOTED; REPORTS ABD PAIN 3/10, PERCOCET GIVEN; WILL REASSESS. WOUND VAC IN PLACE TO ABDOMEN AND SUCTION SET TO CONTINUOUS 125MM/HG; APPROXIMATELY 75MLS IN CANISTER AT THIS TIME. PO FLUIDS OFFERED. PT. DENIES NEEDS. ENCOURAGED REPOSITIONING. CALL LIGHT IS IN REACH. WILL CONTINUE TO MONITOR.
--- NOTE | 2020-06-25 00:15 | NUR ---
RESTING IN BED WITH EYES CLOSED; RESP. EVEN AND UNLABORED; NO DISTRESS NOTED; WOUND VAC REMAINS RUNNING WELL. CALL LIGHT IS IN REACH.
--- NOTE | 2020-06-25 03:30 | NUR ---
PRN PERCOCET GIVEN FOR ABD PAIN 3/10; WILL REASSESS. AM LABS DRAWN VIA PICC AND FLUSHED PER PROTOCOL. CALL LIGHT IS IN REACH. DENIES FURTHER NEEDS.
[2020-06-25 03:40] VITALS: BP 129/84
--- NOTE | 2020-06-25 04:59 | NUR ---
RESTING IN BED; DENIES NEEDS; CALL LIGHT IS IN REACH.
[2020-06-25 05:49] LABS: HEMATOCRIT 29.3 % (37.0-47.0); HEMOGLOBIN 8.4 g/dl (12.0-16.0); MEAN CELL VOLUME 87.5 fL CALC (80.0-100.0); MEAN CORPUSCULAR HGB 25.1 pG CALC (26.0-32.0); MEAN CORPUSCULAR HGB CONC 28.7 g/dL CAL (32.0-36.0); RED BLOOD COUNT 3.35 mill/uL (4.20-5.60); RED CELL DISTRI WIDTH 16.1 % (11.5-15.5)
[2020-06-25 06:12] LABS: ANION GAP 7 (6-22 (CALC)); BUN 7 mg/dL (8-23); BUN/CREATININE RATIO 17 (12-20 (CALC)); CARBON DIOXIDE 30 mmol/l (22-30); CHLORIDE 102 mmol/l (95-108); CREATININE 0.4 mg/dL (0.5-1.0); GFR > 60 ML/MIN (>=60 (CALC)); GFR FOR AFR.AMER. > 60 ML/MIN (>=60 (CALC)); POTASSIUM 3.3 mmol/l (3.5-5.1); SODIUM 136 mmol/l (137-146)
[2020-06-25 08:21] VITALS: BP 159/81
--- NOTE | 2020-06-25 08:21 | NUR ---
PT SITTING IN BED WATCHING TV. A&O X3. NO DISTRESS NOTED. WOUND VAC IN [place]CE AT 125 MMHG CONTINUOUS SUCTION WITH SANGUINEOUS DRAINAGE NOTED. NO OTHER NEEDS AT THIS TIME. PT ENCOURAGED TO USE IS DEVICE. ASSESSMENT COMPLETED. DISCUSSED POC. CALL LIGHT IN REACH. CONTINUE TO MONITOR
--- NOTE | 2020-06-25 10:57 | NUR ---
Clinician identified pt by full name and date. Pt was supine and agreed to perform UB exercises. Pt instructed to sit EOB X 2 min with Fair balance then performed sit -> stand and stood for 1 min then asked to get back into bed due to feeling dizzy. Pt was incouraged to perform oral hygiene and grooming however she declined verbalizing she had performd earlier this morining. [facility] score 17
--- NOTE | 2020-06-25 12:40 | NUR ---
DR RODRIGUEZ AT BEDSIDE COMPLETING WOUND VAC CHANGE. PT TOLERATED WELL
--- NOTE | 2020-06-25 13:15 | NUR ---
PT Note Pt was positioned in semi-fowlers position as entered room. OT performed exercises first, PT. agreed to participate in PT performing bed mibility from supine>sit(independent), static seated balance at bed side as pt. was dizzy as she seated upright. Sit>stand (MIN A), VC for proper hand placement as she ascends to a standing position. Static standing w/ walker w/ slight weight shifting. Stand>sit (MIN A), sit>supine(independent). Tray table and call odonnell left by pt. bediside w/n reach. AMPA 6 score was 11
--- NOTE | 2020-06-25 17:00 | NUR ---
PT C/O OF PAIN AND NAUSEA. PAIN AND ANTIPYRETIC MEDICATION ADMINISTERED, WILL REASSESS PAIN
[2020-06-25 17:41] VITALS: BP 146/70
[2020-06-25 19:22] VITALS: BP 147/84
--- NOTE | 2020-06-25 20:29 | NUR ---
ASSESSMENT COMPLETED;PT. RESTING ON AIR MATTRESS. NO DISTRESS NOTED; DENIES NEEDS/PAIN. SCHED LOVENOX GIVEN. WOUND VAC IN PLACE TO ABDOMEN; NO DRAINAGE NOTED TO CANISTER AND CONTINUES RUNNING @125MM/HG PER ORDER. PO FLUIDS OFFERED. ENCOURAGED TO CALL FOR ANY NEEDS.
--- NOTE | 2020-06-25 23:35 | NUR ---
PT. C/O ABD PAIN AND MEDICATED WITH ORDERED PRN PERCOCET; WILL REASSESS.
--- NOTE | 2020-06-25 23:35 | NUR ---
PT. C/O ABD PAIN ; MEDICATED WITH ORDERED PRN DILAUDID; WILL REASSESS; PO FLUIDS OFFERED. CALL LIGHT IS IN REACH.
[2020-06-26 04:10] VITALS: BP 131/76
--- NOTE | 2020-06-26 04:18 | NUR ---
PT. RESTING IN BED WITH NO DISTRESS NOTED; DENIES NEEDS. REPOSITIONED. UNABLE TO DRAW FROM PICC LINE AND HEPARIN INSERTED. ORGANIZATIONAL PSYCHOLOGIST AT BEDSIDE.
[2020-06-26 05:38] LABS: HEMATOCRIT 30.5 % (37.0-47.0); HEMOGLOBIN 8.9 g/dl (12.0-16.0); MEAN CELL VOLUME 87.4 fL CALC (80.0-100.0); MEAN CORPUSCULAR HGB 25.5 pG CALC (26.0-32.0); MEAN CORPUSCULAR HGB CONC 29.2 g/dL CAL (32.0-36.0); RED BLOOD COUNT 3.49 mill/uL (4.20-5.60)
[2020-06-26 06:02] LABS: ALBUMIN 2.4 g/dL (3.2-5.0); ALKALINE PHOSPHATASE 116 u/l (38-126); ANION GAP 5 (6-22 (CALC)); BILIRUBIN, TOTAL 0.2 mg/dL (0.0-1.4); BUN 5 mg/dL (8-23); BUN/CREATININE RATIO 12 (12-20 (CALC)); CARBON DIOXIDE 30 mmol/l (22-30); CHLORIDE 103 mmol/l (95-108); CREATININE 0.4 mg/dL (0.5-1.0); GFR > 60 ML/MIN (>=60 (CALC)); GFR FOR AFR.AMER. > 60 ML/MIN (>=60 (CALC)); POTASSIUM 3.6 mmol/l (3.5-5.1); SGOT/AST 24 u/l (9-36); SODIUM 136 mmol/l (137-146); TOTAL PROTEIN 5.4 g/dL (6.3-8.2)
--- NOTE | 2020-06-26 07:20 | NUR ---
REPORT RECEIVED FROM CARMITA ALVARENGA.
[2020-06-26 09:18] VITALS: BP 130/76
--- NOTE | 2020-06-26 09:20 | NUR ---
PT RESTING IN SEMI FOWLERS POSITION,A&O X3;VS OBTAINED AND ASSESSMENT COMPLETED;PT REPORTS ABDOMINAL PAIN AND REQUESTS PAIN MEDICATION, PT MEDICATED WITH PRN PERCOCET 5/325MG PO AT THIS TIME;RESPIRATIONS EVEN AND UNLABORED ON RA;ABDOMEN DISTENDED/SOFT ON PALPATION AND ACTIVE IN ALL4 QUADRANTS, WOUND VAC NOTED PER ORDER RUNNING AT 125;WEAK PEDAL PULSES, SCD'S IN PLACE;GUERO DL PICC FLUSHED AND PATENT,SITE APPEARS HEALTHY;PT DENIES ANY ADDITIONAL NEEDS AT THIS TIME AND IS ENCOURAGED TO CALL FOR ASSISTANCE IF NEEDED;FALL PRECAUTIONS IN PLACE WITH BED IN THE LOWEST POSITION AND CALL LIGHT IN REACH;WILL CONTINUE TO MONITOR
--- NOTE | 2020-06-26 11:00 | NUR ---
PHYSICAL THERAPY AT BEDSIDE WORKING WITH PT.
--- NOTE | 2020-06-26 12:20 | NUR ---
PT RESTING IN SEMI FOWLERS POSITION;RESPIRATIONS EVEN AND UNLABORED ON RA;PT DENIES ANY CURRENT PAIN OR NEEDS;WOUND VAC CONTINUES AT 125 PER ORDER;ELIA IRVING PROVIDED BY REQUEST;ASSESSMENT REMAINS UNCHANGED;ENCOURAGED PT TO CALL FOR ASSISTANCE IF NEEDED;CALL LIGHT IN REACH;WILL CONTINUE TO MONITOR
--- NOTE | 2020-06-26 12:30 | NUR ---
AT BEDSIDE DISCUSSING POC.
--- NOTE | 2020-06-26 14:00 | NUR ---
pt was seen for therex and therapeutic dynamic activities. Supine to sit on EOB with CGA. Sit to stand from bed with mod assist x1 however sit to stand from lower bedside recliner required max assist x2. Pt also performed LAQ with DF 2x10, hip adduction pillow squeeze 2x10, ankle pumps 2x10, glute sets 2x10, quad setting 2x10. Bed mobility training with VC for optimal positioning. Stand pivot transfer training with BUE support and max assist x1. ampac=11
--- NOTE | 2020-06-26 14:50 | NUR ---
ALL DISCHARGE INSTRUCTIONS DISCUSSED AT THIS TIME WITH PT;GUERO PICCLINE WAS REMOVED WITH CATHETER INTACT BY CARMITA ASCENCIO;PT TO BE TRANSPORTED TO [facility] AT APPROX 1500,PT VERBALIZES UNDERSTANDING;PT DENIES ANY ADDITIONAL NEEDS;CALL LIGHT IN REACH;WILL CONTINUE TO MONITOR
--- NOTE | 2020-06-26 15:13 | NUR ---
Discharge instructions given. Patient verbalizes understanding of same. Discharged in stable condition via [facility] with *Other. All belongings sent with pt. PT TRANSPORTED TO LOBBY IN STABLE CONDITION VIA STRET[facility]ER ACCOMPANIED BY [facility];ALL BELONGINGS LEFT WITH PT;WOUND VAC LEFT WITH PT WELL.
--- NOTE | 2020-06-26 15:20 | NUR ---
ATTEMPTED TO GIVE REPORT TO [facility]. SPOKE WITH TOMI. PER [facility] NURSING STAFF WILL HAVE TO CALL ME BACK FOR REPORT.
--- NOTE | 2020-06-26 16:18 | NUR ---
CALLED TO INFORM WOUND VAC COMPANY THAT VAC WENT WITH PATIENT TO [facility] WHEN PATIENT WAS TRANSFERED VAC #[id number]
--- NOTE | 2020-06-26 16:49 | NUR ---
REPORT GIVEN TO CARMITA TOLBERT AT [facility].
--- NOTE | 2020-06-26 16:50 | NUR ---
PER DIDI,RN AT [facility]. [employer] NEEDS TO NOTIFY THAT WOUND VAC WOULD BE BEING CHANGED TO A REGULAR VAC TOMORROW 06/27/20 AND TO NOTIFY FABIAN CRAWFORD THAT THE WOUND VAC WOULD NEED TO BE PICKED UP FROM [facility]. AND FABIAN CRAIG NOTIFIED.
== END 2020-06-26 15:13 | DRG 857 ==
LOC: MS2 13:18
PROVIDERS: Internal Medicine; Nurse Practitioner; Nurse Practitioner Family; ADMIT Surgery; ATTEND Surgery
PROC: 0JB80ZZ Excision of Abdomen Subcutaneous Tissue and Fascia, Open Approach (ICD-10-PCS; principal; 2020-06-13)
PROC: 0JD80ZZ Extraction of Abdomen Subcutaneous Tissue and Fascia, Open Approach (ICD-10-PCS; 2020-06-17)
PROC: 2W03X6Z Change Pressure Dressing on Abdominal Wall (ICD-10-PCS; 2020-06-17)
PROC: 0JD80ZZ Extraction of Abdomen Subcutaneous Tissue and Fascia, Open Approach (ICD-10-PCS; 2020-06-19)
PROC: 2W03X6Z Change Pressure Dressing on Abdominal Wall (ICD-10-PCS; 2020-06-19)
PROC: 0HQ7XZZ Repair Abdomen Skin, External Approach (ICD-10-PCS; 2020-06-21)
PROC: 2W03X6Z Change Pressure Dressing on Abdominal Wall (ICD-10-PCS; 2020-06-21)
PROC: 0JD83ZZ Extraction of Abdomen Subcutaneous Tissue and Fascia, Percutaneous Approach (ICD-10-PCS; 2020-06-23)
PROC: 2W03X6Z Change Pressure Dressing on Abdominal Wall (ICD-10-PCS; 2020-06-23)
PROC: 30233N1 Transfusion of Nonautologous Red Blood Cells into Peripheral Vein, Percutaneous Approach (ICD-10-PCS; 2020-06-23)
PROC: 2W03X6Z Change Pressure Dressing on Abdominal Wall (ICD-10-PCS; 2020-06-25)
DX: T81.41XA Infection following a procedure, superficial incisional surgical site, initial encounter (principal); L02.211 Cutaneous abscess of abdominal wall; I10 Essential (primary) hypertension; E11.9 Type 2 diabetes mellitus without complications; E78.5 Hyperlipidemia, unspecified; E03.9 Hypothyroidism, unspecified; Y83.8 Other surgical procedures as the cause of abnormal reaction of the patient, or of later complication, without mention of misadventure at the time of the procedure; D64.9 Anemia, unspecified; E87.6 Hypokalemia; L98.8 Other specified disorders of the skin and subcutaneous tissue; B37.2 Candidiasis of skin and nail; Z11.59 Encounter for screening for other viral diseases
CPT/HCPCS: J0131; J1650; J2248; J2270; J2997; P9016

== ENCOUNTER 2021-11-23 09:07 | Day surgery (SDC) | payer MEDICARE ==
[~2021-11-23] VITALS: Ht 165.1 cm; Wt 83.0 kg
[~2021-11-23 09:07] MED LIST changes: +LATANOPROST0.005 % OU
[2021-11-23 14:38] VITALS: BP 118/64
== END 2021-11-23 14:50 | disposition home or self-care (01) ==
LOC: ENDO 09:07 → ORM 10:20 → ENDO 10:20 → ORM 10:50 → ENDO 14:50
PROVIDERS: ATTEND Surgery
PROC: 0DJD8ZZ Inspection of Lower Intestinal Tract, Via Natural or Artificial Opening Endoscopic (ICD-10-PCS; principal; 2021-11-23)
DX: Z12.11 Encounter for screening for malignant neoplasm of colon (principal); Q43.8 Other specified congenital malformations of intestine; I10 Essential (primary) hypertension; Z86.010 Personal history of colon polyps

== ENCOUNTER 2023-04-02 17:34 | Emergency (ER) | payer MEDICARE ==
[~2023-04-02] VITALS: Ht 165.1 cm; Wt 83.4 kg
[2023-04-02 17:56] VITALS: BP 160/88
[2023-04-02 18:00] VITALS: BP 138/73
[2023-04-02 18:15] VITALS: BP 142/73
[2023-04-02 18:30] VITALS: BP 148/80
[2023-04-02 19:58] VITALS: BP 148/80
== END 2023-04-02 20:10 | disposition home or self-care (01) ==
LOC: ED 17:34
PROC: 0HQ0XZZ Repair Scalp Skin, External Approach (ICD-10-PCS; principal; 2023-04-02)
DX: S01.01XA Laceration without foreign body of scalp, initial encounter (principal); I10 Essential (primary) hypertension; W01.0XXA Fall on same level from slipping, tripping and stumbling without subsequent striking against object, initial encounter; Y92.511 Restaurant or cafe as the place of occurrence of the external cause